=== PATIENT | male | born 1945 | race Caucasian/White ===

== ENCOUNTER → 2017-09-09 08:11 | Outpatient (CLI) | payer MEDICARE, OTHER, SELFPAY ==
[2017-09-09 09:22] LABS: AST(SGOT) 16 U/L (15-37); Alanine Aminotransfer ALT/SGPT 26 U/L (16-61); Albumin, Serum 3.6 g/dL (3.2-5.0); Alkaline Phosphatase 100 U/L (45-117); Bilirubin, Direct 0.15 mg/dL (0.00-0.30); Cholesterol 110 mg/dL (200); Globulin 3.6 g/dL (2.2-4.2); High Density Lipoprotein 35 mg/dL; Protein, Total 7.2 g/dL (6.4-8.2); Triglycerides 71 mg/dL; Very Low Density Lipoprotein 14 mg/dL (5-40)
== END ==
PROVIDERS: Family Provider Family Medicine; PCP Family Medicine; Visit Provider Internal Medicine Cardiovascular Disease
DX: E78.5 Hyperlipidemia, unspecified (principal)
CPT/HCPCS: 36415; 80061; 80076

== ENCOUNTER → 2018-03-16 08:14 | Outpatient (CLI) | payer MEDICARE, OTHER, SELFPAY ==
[2018-03-16 10:28] LABS: AST(SGOT) 12 U/L (15-37); Alanine Aminotransfer ALT/SGPT 24 U/L (16-61); Albumin, Serum 3.7 g/dL (3.2-5.0); Alkaline Phosphatase 93 U/L (45-117); Bilirubin, Direct 0.13 mg/dL (0.00-0.30); Cholesterol 115 mg/dL (200); Globulin 3.7 g/dL (2.2-4.2); High Density Lipoprotein 37 mg/dL; Protein, Total 7.4 g/dL (6.4-8.2); Triglycerides 67 mg/dL; Very Low Density Lipoprotein 13 mg/dL (5-40)
== END ==
PROVIDERS: Family Provider Family Medicine; PCP Family Medicine; Referring Provider Internal Medicine Cardiovascular Disease; Visit Provider Internal Medicine Cardiovascular Disease
DX: E78.5 Hyperlipidemia, unspecified (principal)
CPT/HCPCS: 36415; 80061; 80076

== ENCOUNTER → 2018-05-12 06:39 | Outpatient (CLI) | payer MEDICARE, OTHER, SELFPAY ==
[2017-11-17 09:27] VITALS: BMI 28.2
--- NOTE | 2018-05-12 10:23 | STRESSREP ---
Stress Test Report Date: 05/12/2018 Procedure: Exercise tolerance test/imaging study Indications: CAD; CABG Consent: Per the patient Procedure: The patient exercised on a Cruz protocol for 3 minutes completing Stage I achieving a peak heart rate of 151 bpm (102 % predicted maximal heart rate) with a peak blood pressure 192/84 mmHg and a peak MET capacity of 4 METs. The baseline ECG demonstrated normal sinus rhythm; subtle nonspecific ST/T wave abnormality. The peak exercise ECG demonstrated approximately 2 mm of horizontal/downsloping ST segment depression in leads II, III, aVF, and approximately [address] segment depression in leads V5 through V6 with gradual resolution towards baseline in recovery. There was a rare PAC/PVC during recovery. The functional capacity was considered decreased. There was no complaint of chest discomfort during exercise or recovery. The examination was discontinued secondary to dyspnea. Impression: 1. Technically adequate (percent predicted maximal heart rate greater than 85%) exercise tolerance test 2. Peak exercise ECG demonstrated approximately 2 mm of horizontal/downsloping ST segment depression in leads II, III, aVF, and approximately [address] segment depression in leads V5 through V6 with gradual resolution towards baseline in recovery 3. There was a rare PAC/PVC during recovery 4. Nuclear images pending Myocardial perfusion imaging study: Technique: The patient was injected with 14.1 mCi of technetium 99m Cardiolite and subsequently rest SPECT Cardiolite nuclear imaging was obtained in the horizontal long, vertical long, and short axis views. The patient exercised on a Cruz protocol for 3 minutes completing Stage I achieving a peak heart rate of 151 bpm (102 % predicted maximal heart rate) with a peak blood pressure 192/84 mmHg and a peak MET capacity of 4 METs. The patient was injected with 44.8 mCi of technetium 99m Cardiolite and subsequently stress SPECT Cardiolite nuclear imaging was obtained in the horizontal long, vertical long, and short axis views. A gated Cardiolite study at peak stress was obtained. Interpretation: Rest and stress SPECT Cardiolite nuclear imaging status post realignment, normalization, and attenuation correction, demonstrates the appearance of extracardiac and gastrointestinal tracer uptake near the inferior segments being more prominent at rest as opposed to stress. There is notation of diminished absence of tracer uptake in portions of the basal inferoseptal and basal towards mid inferior segments. These findings appear to be more prominent, especially in the basal towards mid inferior segments following stress as opposed to rest. There is notation of diminished end-systolic thickening and brightening in the aforementioned areas. The gated Cardiolite study demonstrates diminished myocardial thickening and end were wall motion in the aforementioned areas. The reported LVEF is 48 %. Impression: 1. Rest and stress SPECT Cardiolite nuclear imaging demonstrate myocardial perfusion changes compatible with an area of previous myocardial injury/infarction involving portions of the basal inferoseptal and basal towards mid inferior segments with post stress myocardial perfusion changes appearing compatible with an area of samina-infarct related myocardial ischemia in portions of the basal to mid inferior segments. 2. The gated Cardiolite study reports an LVEF of 48 %. This note was generated with [employer] software. It may contain incorrect words, spelling, and punctuation that were not noted in checking the note before signing.
== END ==
PROVIDERS: Family Provider Family Medicine; PCP Family Medicine; Referring Provider Nurse Practitioner Family; Visit Provider Nurse Practitioner Family
DX: I25.10 Atherosclerotic heart disease of native coronary artery without angina pectoris (principal); R94.39 Abnormal result of other cardiovascular function study; I10 Essential (primary) hypertension; Z95.1 Presence of aortocoronary bypass graft
CPT/HCPCS: 78452; 93017; 93306; A9500; Q9957; A4216; C8929

== ENCOUNTER → 2018-05-14 10:20 | Outpatient (CLI) | payer MEDICARE, OTHER, SELFPAY ==
[2018-05-14 09:29] VITALS: BMI 28.8
[2018-05-14 13:28] LABS: Anion Gap 9 (5-15); BUN 24 mg/dL (7-18); BUN/Creat Ratio 20.9 RATIO (10-20); Calcium,Total 9.2 mg/dL (8.5-10.1); Chloride 109 mmol/L (98-107); Creatinine, Serum 1.15 mg/dL (0.70-1.30); EST Glomerular Filtration Rate 66 mL/min (>60); Est Glom Filt Rate - Afr Amer 80 mL/min (>60); Glucose 91 mg/dL (74-106); Potassium 4.8 mmol/L (3.5-5.1); Sodium Level 142 mmol/L (136-145)
[2018-05-14 13:29] LABS: Absolute Lymphocyte Count 2.53 X10^3/ul (0.83-4.51); Basophil# 0.03 X10^3/uL; Basophil% 0.3 % (0-1); Eosinophil# 0.26 X10^3/uL; Eosinophils% 2.5 % (0-5); Hematocrit 48.7 % (40-54); Hemoglobin 15.8 g/dl (13.0-16.5); Lymphocyte # 2.53 X10^3/ul (4.0); Lymphocyte % 24.7 % (19-41); Mean Corp Hgb Conc 32.4 g/gl (32-36); Mean Corpuscular Hgb 29.4 pg (27.0-32.0); Mean Corpuscular Volume 90.5 fL (80-94); Mean Platelet Vol. 10.2 fl (6.2-12.0); Monocyte# 1.43 X10^3/uL; Monocyte% 13.9 % (0-10); Neutrophil # 5.98 X10^3/uL (2.7-7.7); Neutrophil % 58.3 % (47-70); POSITIVE COUNT NO; POSITIVE DIFFERENTIAL NO; POSITIVE MORPHOLOGY NO; Platelet Count 442 K/mm3 (150-450); RBC Distribution Width CV 13.8 % (11.6-14.6); RBC Distribution Width SD 45.6 fl (35.1-43.9); Red Blood Count 5.38 M/mm3 (4.6-6.2); White Blood Count 10.3 K/mm3 (4.4-11.0)
== END ==
PROVIDERS: Family Provider Family Medicine; PCP Family Medicine; Visit Provider Nurse Practitioner Family
DX: I10 Essential (primary) hypertension (principal); R06.09 Other forms of dyspnea; R53.83 Other fatigue; R94.39 Abnormal result of other cardiovascular function study; E78.2 Mixed hyperlipidemia; Z95.1 Presence of aortocoronary bypass graft
CPT/HCPCS: 36415; 80048; 85025

== ENCOUNTER 2018-05-27 07:03 | Day surgery (SDC) | payer MEDICARE, OTHER, SELFPAY ==
[2018-05-14 09:29] VITALS: BMI 28.8
--- NOTE | 2018-05-14 10:43 | RAD_ITS ---
STUDY: X-RAY CHEST REASON FOR EXAM: Male, 72 years old. Abnormal stress test, preheart catheter TECHNIQUE: PA and lateral views of the chest. COMPARISON: 2012 FINDINGS: Lungs are hyperexpanded with chronic interstitial changes. No organized infiltrate or effusion. There is no demonstrated pleural abnormality. Sternal cerclage wires and vascular clips are present from a prior sternotomy and coronary artery bypass graft procedure (CABG). Normal mediastinum and davy. Normal visualized pulmonary arteries. There is atherosclerotic calcification of the aortic arch with tortuosity. There are diffuse degenerative changes of the visualized thoracic spine. Normal visualized ribs, clavicles, and shoulders. There is no demonstrated abnormality of the visualized soft tissue structures of the upper abdomen. RAD/Chest PA and Lateral IMPRESSION: Hyperexpanded lungs with chronic interstitial changes, no superimposed acute pulmonary process Electronically Signed: Kaleb Eden MD at 11:00 EST , Service support ,
[2018-05-25 10:14] VITALS: BMI 28.8
[2018-05-27 07:16] LABS: Prothrombin Time Fingerstick 14.1 SEC (11.9-14.4)
--- NOTE | 2018-05-27 19:04 | CL.D_ITS ---
Patient Name: XUAN ARRIETA Study Date: 05/27/2018 Performing: Bob Kothari MD Ht: 72 inches 183 cm : 1945 Wt: 214.1 lbs 97 kg Age: 72 Gender: male BSA: 2.19 PROCEDURE(S) PERFORMED NC42-MGX/COR/LV/CABG CLINICAL PROFILE AND INDICATIONS Indications: Suspected CAD Heart Failure: None Stress/Imaging Stress Test w/SPECT MPI: Yes Result: PositiveStress Test with SPECT MPI: Positive Angina Classification Anginal Classification w/in 2 Weeks: CCS III CAD Presentations: Stable angina. CONCLUSIONS Elevated Left Ventricular End Diastolic Pressure Segmented LV systolic dysfunction- Mild LVEF: by LV gram 50 % [place] Multivessel CAD MANZANARES to LAD: patent SVG to OM: patient Left to Right collateral flow RECOMMENDATIONS Risk factor modification Medical therapy DESCRIPTION OF PROCEDURE The patient arrived to the procedure lab. The risks and benefits of the procedure as well as a full d escription of our services here and current unavailability of surgical backup were fully explained to the patient and/or their significant other prior to the catheterization. The Timeout was completed, verifying the correct patient and procedure. The patient's procedural site was prepped and draped in the usual fashion. Local anesthetic was given subcutaneously to right groin region with Lidocaine 2%. Using a modified Seldinger technique, arterial access was obtained via the right femoral artery, a 4 Fr sheath was inserted Left Coronary Artery selective angiography was performed in multiple views us ing a 4 Fr. JL5 catheter. Right Coronary Artery selective angiography was then performed in multiple views using a 4 Fr. 3DRC catheter. Saphenous Vein graft to the OM 1 selective angiography was perform ed in multiple views using a 4 Fr. 3DRC catheter. Left internal mammary artery graft to the LAD selective angiography was performed in multiple views using a 4 Fr. JR4 catheter. Right Coron mamta Artery selective angiography was then performed in multiple views using a 4 Fr. JR4 catheter. Lef t Ventriculography was performed in TABOR projection using a 4 Fr. Pigtail catheter. LV to AO pullback pressures were then recorded.The arterial sheath was pulled and manual compression applied until hemo stasis is achieved. CORONARY ANGIOGRAPHY LEFT HEART ASSESSMENT Left Ventricular Ejection Fraction: by LV Gram 50 % Inferior Basal Akinesis. Inferior Mid Hypokinesis Elevated Left Ventricular End Diastolic Pressure LVEDP: 22 mmHg LEFT MAIN: Moderate calcification, 50 % Stenosis LEFT ANTERIOR DECENDING ARTERY: MID LAD: is occluded CIRCUMFLEX ARTERY: PROX CIRC: 95 % Stenosis RAMUS: Mild luminal irregularities RIGHT CORONARY ARTERY: MID RCA: is occluded GRAFTS: MANZANARES graft to the Mid LAD is patent with no angiographically significant appearing disease distal to the anastomosis Saphenous Vein graft to the 1st OM is patent with no angiographically significant appearing disease d istal to the anastomosis COLLATERAL FLOW: Collateral flow from Left to Right VALVE FINDINGS: Normal Aortic Valve function Normal Mitral Valve function AORTIC ROOT: Angiographically normal COMPLICATIONS No Complications PROCEDURE MEDICATIONS Versed 1 mg IV Versed 1 mg IV Oxygen: 2 L/min via nasal cannula SUMMARY OF HEMODYNAMIC DATA Time AIR REST ECG 07:27:23 AO 113/68 (89) SA 08:47:16 LV 137/0, 22 09:05:58 LV 134/-2, 12 09:06:05 LV 134/2, 21 09:07:05 LV 140/3, 19 09:07:12 LVp 134/1, 17 09:07:18 AOp 138/68 (96) 09:07:24 Signed By Bob Kothari MD On 05/27/2018 19:03:14 Bob Kothari MD
--- OUTSIDE RECORDS SUMMARY | 2018-07-29 01:46 | XMS RPT_ITS ---
:1945 Author Organization [place] Support Name Relationship Address Phone ISABELL ARRIETA Unavailable [address] + [place] [address] BRIAN ARRIETA Unavailable [address] + [place] [address] R Unavailable Unavailable Unavailable ISABELL ARRIETA Unavailable [address] + [place] [address] BRIAN ARRIETA Un[address] + [place] [address] R Unavailable Unavailable Unavailable ISABELL ARRIETA Unavailable [address] + [place] [address] BRIAN ARRIETA Unavailable [address] + [place] [address] R Unavailable Unavailable Unavailable ISABELL ARRIETA Unavailable [address] + [place] [address] BRIAN ARRIETA Unavailable [address] + [place] [address] R Unavailable Unavailable Unavailable ISABELL ARRIETA Unavailable [address] + [place] [address] BRIAN ARRIETA Unavailable [address] + [place] [address] R Unavailable Unavailable Unavailable ISABELL ARRIETA Unavailable [address] + [place] [address] BRIAN ARRIETA Un[address] + [place] [address] [employer] Unavailable [address] + [place] [address] ISABELL ARRIETA Unavailable [address] + [place] [address] [employer] Unavailable [address] + [place] [address] ISABELL ARRIETA Unavailable [address] + [place] [address] [employer] Unavailable [address] + [place] [address] Care Team Providers Name Role Phone TOSIN COSME Referring Unavailable BA, TOSIN Referring Unavailable BA, TOSIN Referring Unavailable Roof, Artem Campbell Attending Unavailable Roof, Artem Campbell Referring Unavailable Stanley, Owen Primary Care Unavailable Roof, Artem Campbell Attending Unavailable Stanley, Owen Referring Unavailable Moodispaw, Bob Attending Unavailable Moodispaw, Bob Referring Unavailable Stanley, Owen Primary Care Unavailable Roof, Artem Campbell Attending Unavailable Stanley, Owen Primary Care Unavailable Moodispaw, Bob Attending Unavailable Mood[place], Bob Referring Unavailable Stanley, Owen Primary Care Unavailable Mood[place], Bob Attending Unavailable Roof, Artem Campbell Referring Unavailable Roof, Artem Campbell Attending Unavailable Stanley, Owen Referring Unavailable Stanley, Owen Primary Care Unavailable Moodispaw, Bob Attending Unavailable Moodispaw, Bob Referring Unavailable Stanley, Owen Primary Care Unavailable PROBLEMS PROBLEMS DATE TYPE CONDITION / CODE ATTENDING STATUS SOURCE Unknown I10 - Essential (primary) Artem Garza Active [place] [facility] hypertension / Community I10(ICD-10) Hospital Repository Unknown Z95.1 - Presence of Artem Garza Active [place] 9 aortocoronary bypass Community graft / Z95.1(ICD-10) Hospital Repository Unknown R94.39 - Abnormal result Artem Garza Active [place] [facility] of other cardiovascular Community function study / Hospital R94.39(ICD-10) Repository Unknown R53.83 - Other fatigue / Artem Garza Active [place] 9 R53.83(ICD-10) [facility] Repository Unknown R06.09 - Other forms of Artem Garza Active [place] 9 dyspnea / R06.09(ICD-10) [facility] Repository Unknown E78.2 - Mixed Artem Garza Active [place] 9 hyperlipidemia / Community E78.2(ICD-10) Hospital Repository Unknown E78.0 - Pure RoofArtem Active [place] 9 hypercholesterolemia / Community E78.0(ICD-10) Hospital Repository Unknown E78.00 - Pure Roof, Artem Campbell Active [place] 9 hypercholesterolemia, Community unspecified / Hospital E78.00(ICD-10) Repository Unknown I25.10 - Atherosclerotic Roof, Artem Campbell Active [place] 9 heart disease of [place] Community coronary artery without Hospital angina pectoris / Repository I25.10(ICD-10) Active Vitamin D deficiency, NA Active [place] 8 unspecified / Clinic Main 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 Main without hydronephrosis / [place] N13.5(ICD-10) Repository Unknown E78.5 - Hyperlipidemia, Mood[place], Active [place] [facility] unspecified / Bob Community E78.5(ICD-10) Hospital Repository PROCEDURES PROCEDURES No Procedure Records FoundRESULTS RESULTS PROTIME W/INR Collected: 05/27/2018 Status: F Source: [place] FINGERSTICK 7:10 AM [facility] REPOSITORY TYPE CODE TESTS RESULT OUT OF RANGE REFERENCE UNITS LAB L9200.1001 11.9-14.4 SEC Normal PROTIME ISTAT 14.1 Result Comment: Reference Range 11.9 - 14.4 LAB L9200.2000 Normal INR ISTAT 1.20 Result Comment: Critical Value > 3.5 Performed By: #### L9200.0000 #### [facility] Point of Care [address] [place] [address] CARDIOLOGY VISIT Observed: 05/14/2018 Status: F Source: [place] REPORT 11:25 AM [facility] REPOSITORY [facility] [address] [place] [address] OFFICE VISIT Date of Service: 05/14/18 MR#: [id number] Acct: [id number] Name: MEENAKSHIXUAN José Rep #: [id number] : 1945 Provider: HEMALATHA Garza Age/Sex: 72/M Location: [facility] Status: Signed HPI HPI Details: XUAN ARRIETA, is a 72 M who presents to the office today for a cardiovascular outpatient follow-up. He has a history of CABG in 2002 with MANZANARES to LAD and SVG to OM in November [address] [facility], hypertension, hyperlipidemia, and type II diabetes. Prior to office visit patient underwent a nuclear stress test due to greater than 5 years since previous stress test. This was considered to be abnormal. Patient's contacted our office stating that the patient appears to be more short of breath on exertion and more fatigued most noted by sleeping while watching TV. Pt denies chest, arm, jaw, or neck discomfort. Prior to bypass he had chest pain. Acknowledges progressive dyspnea on exertion, that he attributes to his age. His exercise tolerance is stable. Pt denies symptoms of palpitations, lightheadedness, dizziness, near syncopal or syncopal episodes. Pt denies edema or claudication issues. Pt. denies orthopnea, PND, fever, chills, blood in urine, blood in stool, myalgia, or unexplainable fatigue. 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 Accompanied by: Is patient in pain?: No Allergies No Known Allergies Allergy (Verified 05/14/18 09:35) Medications aspirin 325 mg tablet 325 mg PO QDAY 05/13/17 [History Confirmed 05/14/18] calcium carbonate-vitamin D3 600 mg calcium-200 unit capsule 1 cap PO QDAY ea 05/13/17 [History Confirmed 05/14/18] multivitamin tablet 1 tab PO QDAY 05/13/17 [History Confirmed 05/14/18] omega 5-xzh-bdo-fish oil 1,000 mg (120 mg-180 mg) capsule 1 cap PO QDAY ea 05/13/17 [History Confirmed 05/14/18] fexofenadine 60 mg tablet 60 mg PO QDAY tab 05/15/17 [History Confirmed 05/14/18] pantoprazole 40 mg tablet,delayed release 40 mg PO QDAY 05/15/17 [History Confirmed 05/14/18] amlodipine 5 mg tablet 5 mg PO BID #180 tab 11/17/17 [Rx Confirmed 05/14/18] atorvastatin 80 mg tablet 40 mg PO QDAY #45 tab MDD 1 tablet po qday 11/17/17 [Rx Confirmed 05/14/18] losartan 50 mg tablet 50 mg PO QDAY #90 tab 11/17/17 [Rx Confirmed 05/14/18] metoprolol tartrate 25 mg tablet 25 mg PO BID #90 tab MDD 1/2 tablet po BID 11/17/17 [Rx Confirmed 05/14/18] clopidogrel 75 mg tablet 75 mg PO QDAY #30 tab 05/14/18 [Rx Confirmed 05/14/18] naproxen 250 mg tablet 250 mg PO BID PRN tab 05/14/18 [History Confirmed 05/14/18] Ejection fraction %: 55 to 59 PFSH Medical History Mixed hyperlipidemia (Chronic) Hypertension (Chronic) 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 (Acute) Carotid bruit (Acute) Chest pain (Acute) Fatigue (Acute) Hyperlipidemia (Acute) Old myocardial infarction (Acute) Tobacco abuse (Acute) Type 2 diabetes mellitus (Acute) Hypertension (Chronic) Surgical History Hx of CABG (Chronic) History of kidney surgery (Resolved) History of tonsillectomy (Resolved) History of vasectomy (Resolved) Presence of aortocoronary bypass graft (Resolved) Family History Father Myocardial infarction Brother Hx of CABG Social History Smoking Status: Former smoker how long ago did patient quit smokin years alcohol intake: current alcohol intake frequency: a few times a week substance use type: does not use caffeine: Yes Type: coffee Number of servings: 2 ROS Const Const: Negative for weakness, body ache, fever(s), chills or fatigue ENT ENT: Negative for dizziness Cardio Chest Pain: No Palpitations: No Edema: None Muscle aches with walking: None Resp Respiratory: Positive for SOB with activity; negative for SOB at rest, SOB orthopnea\SOB lying down or paroxysmal nocturnal dyspnea GI GI: Negative nausea, black,tarry stools, bright, red blood in stools or vomiting blood/hematemesis : Negative for hematuria or frequent nighttime urination/ nocturia Musc Musc: Negative for muscle aches/ myalgia Skin Skin: Negative non-healing lesions or rash Neuro Neuro: Negative for lightheadedness, near syncope, syncope, orthostatic symptoms, weakness or dizziness Endo Endo: Negative for fatigue Allergy Allergy/Immunology: Negative for rash Cardiology Exam Const Appearance: cooperative, healthy appearing, comfortable, no acute distress, well developed and well groomed Nutritional Appearance: average body habitus and overweight Orientation: alert, awake and oriented x3 Head Head: normal to inspection, normocephalic and atraumatic Ears: hearing grossly normal bilaterally Nose: external nose normal Face and Sinus: face symmetric Mouth: oral mucosae normal Teeth and gingiva: dentition normal Eyes General: appearance normal, both eyes and all related structures Eyelids: eyelids normal Conjunctivae: conjunctivae normal Pupils: PERRL EOM: EOM intact bilaterally Neck Neck: normal visual inspection and full ROM Carotids: normal carotid upstroke Chest Chest inspection: normal inspection of the chest, symmetric chest movement and normal respiratory effort Auscultation: Bilateral: Clear to Auscultation Cardio Palpation: normal PMI Rate: regular rate Rhythm: regular rhythm Heart sounds: S1 normal, S2 normal and positive S4; negative gallop, murmur or rub GI GI: normal to inspection, soft, no hepatosplenomegaly and bowel sounds present Neuro General: alert, awake and oriented x3 Skin Skin: no rashes or lesions noted Extremities Pulses: Normal: Right Radial Pulse, Left Radial Pulse Lower Extremity Edema: None: Bilateral Psych Psychological: normal affect Assessment AND Plan 1. Hx of CABG Z95.1 S/P CABD with MANZANARES to LAD and SVG to OM in November 2002 at [facility]; Plan His most recent nuclear stress test in May 2018 was considered to be positive. Patient is agreeable to proceed with heart catheterization for further evaluation. He will begin Plavix. [facility] Yola Shah at [phone] and to local pharmacy to ensure patient can start this medication 7 days prior to heart catheterization. His heart catheterization results will dictate if he needs to remain on Plavix therapy. He will continue with current beta-emily, aspirin therapy, statin, and ARB. Further recommendation will be made based on results of his heart catheterization. Orders Orders: 2. Essential hypertension I10 Plan Patient's blood pressure is well-controlled. We will continue to monitor this. We will not make any medication regimen changes. Orders Orders: 3. Mixed hyperlipidemia E78.2 Plan Lipid panel from March 2018 showed cholesterol: 115, HDL: 37, LDL: 65, triglycerides: 67. He will continue with current statin medication. We will continue to monitor. Orders Orders: Plan Detail Other Orders Orders: Other Medications New: Additional Comments Thank you for allowing us to participate in the patient's plan of care, if you have any questions please do not hesitate to call. This note was generated using a voice recognition system and there may be incorrect words, spelling, or punctuation that were not noted upon reviewing the office note prior to saving. Coding Level of Care Code Off vis,est,level 3 Diagnoses Hx of CABG Z95.1 Essential hypertension I10 Hypertension type: essential hypertension Mixed hyperlipidemia E78.2 Coding Level of Care Code Off vis,est,level 3 Diagnoses Hx of CABG Z95.1 Essential hypertension I10 Hypertension type: essential hypertension Mixed hyperlipidemia E78.2 Supplemental Info Supplemental Information He had a transthoracic echocardiogram performed on 06/16/2012. He had left ventricular regional wall motion abnormalities. His overall LVEF was 55%. He had mild concentric LVH with mild left atrial enlargement, mild MR, trivial TR, mild focal aortic valve thickening, mild KS, and an estimated RV systolic pressure of 35 mmHg. He had decreased diastolic compliance. Nuclear stress test from May 2018 showed peak exercise ECG with approximately 2 mm of horizontal/downsloping ST segment depression in leads II, 3, aVF, and a proximal [address] segment depression in leads V4 through V6 with gradual resolution towards baseline in recovery and nuclear images showing changes compatible with an area of previous myocardial injury/infarction involving portions of the basal inferoseptal and basal towards mid inferior segments with post stress myocardial perfusion changes appear compatible with an area of samina-infarct related myocardial ischemia in portion of the basal to mid inferior segments with an ejection fraction of 48%. He subsequently underwent diagnostic cardiac catheterization on 07/06/2012. At that time based upon the report, from [facility] in [place], [place], he had normal left ventricular systolic function with an estimated LVEF of 60%, a patent MANZANARES to the mid LAD, patent SVG to the OM, and severe underlying [place] vessel disease including the left main coronary artery and a report of an occluded and collateralized right coronary artery. His previous coronary artery bypass grafting surgery was performed through the [facility] system on 11/22/2002 at [facility] in [facility]. At that time he had a MANZANARES to the LAD and an SVG to the OM. Labs LDL Cholesterol 65 mg/dL (0-130) 03/16/18 HDL Cholesterol 37 mg/dL (40-) L 03/16/18 Triglycerides 67 mg/dL (-199) 03/16/18 VLDL Cholesterol 13 mg/dL (5-40) 03/16/18 Diagnostics Stress Test Nuclear Medicine 05/12/18 Stress Test 05/12/18 Chest X-Ray 05/14/18 05/14/18 1125 <Electronically signed by Artem TYLER> Date Artem TYLER Cosigner Signature: Date (if applicable) CC: Owen Angel DO CHEST PA AND LATERAL Observed: 05/14/2018 Status: F Source: [place] 10:40 AM [facility] REPOSITORY [facility] Imaging Services [address] [place] [id number] Chest PA and Lateral MR#: [id number] Acct: [id number] Name: XUAN ARRIETA Rep #: [id number] : 1945 M 72 From: Quintin [place] MD PCP: Owen Angel DO Status: PRE [facility] Study: Chest PA and Lateral Date of Exam: 05/14/18 Exam# [id number] Ordering Dr: Artem Garza STUDY: X-RAY CHEST REASON FOR EXAM: Male, 72 years old. Abnormal stress test, preheart catheter TECHNIQUE: PA and lateral views of the chest. COMPARISON: 2012 FINDINGS: Lungs are hyperexpanded with chronic interstitial changes. No organized infiltrate or effusion. There is no demonstrated pleural abnormality. Sternal cerclage wires and vascular clips are present from a prior sternotomy and coronary artery bypass graft procedure (CABG). Normal mediastinum and davy. Normal visualized pulmonary arteries. There is atherosclerotic calcification of the aortic arch with tortuosity. There are diffuse degenerative changes of the visualized thoracic spine. Normal visualized ribs, clavicles, and shoulders. There is no demonstrated abnormality of the visualized soft tissue structures of the upper abdomen. RAD/Chest PA and Lateral IMPRESSION: Hyperexpanded lungs with chronic interstitial changes, no superimposed acute pulmonary process Electronically Signed: Kaleb [place] MD at 11:00 EST , Service support , CC: HEMALATHA aGrza; Owen Angel DO Woods Rider: Signed BASIC METABOLIC Collected: 05/14/2018 Status: F Source: AIDAN PROFILE (BMP) 10:21 AM [facility] REPOSITORY TYPE CODE TESTS RESULT OUT OF RANGE REFERENCE UNITS LAB L501.0100 74-106 mg/dL Normal GLU 91 Result Comment: Please note revised GLUCOSE reference range effective 2017. LAB L501.1000 7-18 mg/dL High BUN 24 LAB L501.1100 0.70-1.30 mg/dL Normal CREAT,SERUM 1.15 Result Comment: The validity of the calculated GFR AND GFRAA in patients over 70 years has not been determined. Clinical correlation is essential. LAB L501.1110 >60 mL/min Normal EST GFR 66 Result Comment: Non- GFR Calc LAB L501.1115 >60 mL/min Normal EST GFR - AA 80 Result Comment: GFR Calc LAB L501.1300 10-20 RATIO High BUN/CRE 20.9 LAB L501.2200 8.5-10.1 mg/dL CA Normal 9.2 LAB L501.5300 136-145 mmol/L NA Normal 142 LAB L501.5600 3.5-5.1 mmol/L K Normal 4.8 Result Comment: Slight Hemolysis, Result may be falsely increased. LAB L501.5900 98-107 mmol/L High CL 109 LAB L501.6100 21.0-32.0 mmol/L Normal CO2 24.0 LAB L501.6200 5-15 Normal 9 GAP Performed By: #### L500.2500 #### [facility] [address] [place], [address] CBC W/DIFF, AUTOMATED Collected: 05/14/2018 Status: F Source: [place]AN 10:21 AM [facility] REPOSITORY TYPE CODE TESTS RESULT OUT OF RANGE REFERENCE UNITS LAB L100.1000 4.4-11.0 K/mm3 Normal WBC 10.3 LAB L100.1200 4.6-6.2 M/mm3 Normal RBC 5.38 LAB L100.1300 13.0-16.5 g/dl Normal HGB 15.8 LAB L100.1400 40-54 % Normal HCT 48.7 LAB L100.1500 80-94 fL Normal MCV 90.5 LAB L100.1600 27.0-32.0 pg Normal MCH 29.4 LAB L100.1700 32-36 g/gl Normal MCHC 32.4 LAB L100.1810 11.6-14.6 % Normal RDW CV 13.8 LAB L100.1820 35.1-43.9 fl High RDW SD 45.6 LAB L100.1900 150-450 K/mm3 Normal PLT 442 LAB L100.2000 6.2-12.0 fl Normal MPV 10.2 LAB L100.2100 47-70 % Normal NEUT% 58.3 LAB L100.2200 19-41 % Normal LY% 24.7 LAB L100.2300 0-10 % High MONO% 13.9 LAB L100.2400 0-5 % Normal EO% 2.5 LAB L100.2500 0-1 % Normal BASO% 0.3 LAB L100.2550 0.0-0.9 % Normal IM GRAN % 0.300 Result Comment: IG% - Immature Granulocytes (promyelocytes, myelocytes and metamyelocytes) > 1% indicates that a LEFT SHIFT is Present. LAB L100.2620 2.0-7.7 X10 3/uL Normal Absolute Neut 6.0 LAB L100.2720 0.83-4.51 X10 3/ul Normal Absolute Lymph 2.53 Performed By: #### L100.0100 #### [facility] [address] [place], [address] STRESS REPORT Observed: 05/12/2018 Status: F Source: [place] 10:28 AM [facility] REPOSITORY [facility] Cardiovascular Services [address] [place] [address] MR#: [id number] Acct: [id number] Name: XUAN ARRIETA Rep #: [id number] : 1945 72 From: Bob Kothari MD Primary Care: Owen Angel DO Status: REG CLI Ordering Dr: Sissy: Akira Contreras Stress Test Report Date: 05/12/2018 Procedure: Exercise tolerance test/imaging study Indications: CAD; CABG Consent: Per the patient Procedure: The patient exercised on a Cruz protocol for 3 minutes completing Stage I achieving a peak heart rate of 151 bpm (102 % predicted maximal heart rate) with a peak blood pressure 192/84 mmHg and a peak MET capacity of 4 METs. The baseline ECG demonstrated normal sinus rhythm; subtle nonspecific ST/T wave abnormality. The peak exercise ECG demonstrated approximately 2 mm of horizontal/downsloping ST segment depression in leads II, III, aVF, and approximately [address] segment depression in leads V5 through V6 with gradual resolution towards baseline in recovery. There was a rare PAC/PVC during recovery. The functional capacity was considered decreased. There was no complaint of chest discomfort during exercise or recovery. The examination was discontinued secondary to dyspnea. Impression: 1. Technically adequate (percent predicted maximal heart rate greater than 85%) exercise tolerance test 2. Peak exercise ECG demonstrated approximately 2 mm of horizontal/downsloping ST segment depression in leads II, III, aVF, and approximately [address] segment depression in leads V5 through V6 with gradual resolution towards baseline in recovery 3. There was a rare PAC/PVC during recovery 4. Nuclear images pending Myocardial perfusion imaging study: Technique: The patient was injected with 14.1 mCi of technetium 99m Cardiolite and subsequently rest SPECT Cardiolite nuclear imaging was obtained in the horizontal long, vertical long, and short axis views. The patient exercised on a Cruz protocol for 3 minutes completing Stage I achieving a peak heart rate of 151 bpm (102 % predicted maximal heart rate) with a peak blood pressure 192/84 mmHg and a peak MET capacity of 4 METs. The patient was injected with 44.8 mCi of technetium 99m Cardiolite and subsequently stress SPECT Cardiolite nuclear imaging was obtained in the horizontal long, vertical long, and short axis views. A gated Cardiolite study at peak stress was obtained. Interpretation: Rest and stress SPECT Cardiolite nuclear imaging status post realignment, normalization, and attenuation correction, demonstrates the appearance of extracardiac and gastrointestinal tracer uptake near the inferior segments being more prominent at rest as opposed to stress. There is notation of diminished absence of tracer uptake in portions of the basal inferoseptal and basal towards mid inferior segments. These findings appear to be more prominent, especially in the basal towards mid inferior segments following stress as opposed to rest. There is notation of diminished end-systolic thickening and brightening in the aforementioned areas. The gated Cardiolite study demonstrates diminished myocardial thickening and end were wall motion in the aforementioned areas. The reported LVEF is 48 %. Impression: 1. Rest and stress SPECT Cardiolite nuclear imaging demonstrate myocardial perfusion changes compatible with an area of previous myocardial injury/infarction involving portions of the basal inferoseptal and basal towards mid inferior segments with post stress myocardial perfusion changes appearing compatible with an area of samina- infarct related myocardial ischemia in portions of the basal to mid inferior segments. 2. The gated Cardiolite study reports an LVEF of 48 %. This note was generated with 5minutesation software. It may contain incorrect words, spelling, and punctuation that were not noted in checking the note before signing. 05/12/18 1028 <Electronically signed by Bob Kothari MD> Date Bob Kothari MD CC: HEMALATHA Garza; Owen Angel DO Date Dictated: 05/12/18 1023 Date Transcribed: 05/12/18 1023 Woods Rider: PM Signed LIVER PROFILE Collected: 03/16/2018 Status: F Source: AID[place] 8:23 AM [facility] REPOSITORY TYPE CODE TESTS RESULT OUT OF RANGE REFERENCE UNITS LAB L501.1500 6.4-8.2 g/dL Normal T PROT 7.4 LAB L501.1800 3.2-5.0 g/dL Normal ALB 3.7 LAB L501.1950 2.2-4.2 g/dL Normal GLOB 3.7 LAB L501.4100 15-37 U/L Low AST 12 LAB L501.4305 45-117 U/L Normal ALK P 93 LAB L501.4405 16-61 U/L Normal ALT 24 LAB L501.4600 0.20-1.00 mg/dL Normal T BILI 0.60 LAB L501.4700 0.00-0.30 mg/dL Normal D BILI 0.13 Performed By: #### L500.3400, L500.4100 #### [facility] [address] [place], [place], [address] LIPID PROFILE Collected: 03/16/2018 Status: F Source: AIDAN 8:23 AM [facility] REPOSITORY TYPE CODE TESTS RESULT OUT OF RANGE REFERENCE UNITS LAB L501.4900 200 mg/dL Normal CHOL 115 Result Comment: <200 mg/dL Desirable 200-240 mg/dL Borderline >240 mg/dL High Risk LAB L501.5000 mg/dL Normal TRIG 67 Result Comment: The drugs N-Acetylcysteine and Metamizole may falsely depress this assay. Serum Triglycerides Reference Interval Normal <150 mg/dL Borderline high 150 - 199 mg/dL High 200 - 499 mg/dL Very High > or = 500 mg/dL LAB L501.6400 mg/dL Low HDL 37 Result Comment: The drugs N-Acetylcysteine and Metamizole may falsely depress this assay. Reference Range HDL <40 mg/dL Low HDL Cholesterol HDL >or= 60 mg/dL High HDL Cholesterol LAB L501.6500 0-130 mg/dL Normal LDL 65 LAB L501.6600 5-40 mg/dL Normal VLDL 13 Performed By: #### L500.3400, L500.4100 #### [facility] [address] [place], [place], [address] CARDIOLOGY VISIT Observed: 11/18/2017 Status: F Source: [place] REPORT 7:25 AM [facility] REPOSITORY [facility] [address] [place] [address] OFFICE VISIT Date of Service: 11/17/17 MR#: [id number] Acct: [id number] Name: XUAN ARRIETA Rep #: [id number] : 1945 Provider: HEMALATHA Garza Age/Sex: 72/M Location: [facility] Status: Signed HPI HPI Details: XUAN ARRIETA, is a 72 M who presents today for a cardiovascular outpatient follow up. He has a history of CABG in 2002, hypertension, hyperlipidemia, and type II diabetes. Pt denies chest, arm, jaw, or neck discomfort. Prior to bypass he had chest pain. His exercise tolerance is stable. Pt denies symptoms of CHF, palpitations, lightheadedness, dizziness, near syncopal or syncopal episodes. Pt denies edema or claudication issues. Pt. denies orthopnea, PND, fever, chills, blood in urine, blood in stool, myalgia, or unexplainable fatigue. 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[employer] Products Required: No Accompanied by: none Is patient in pain?: No Allergies No Known Allergies Allergy (Verified 11/17/17 09:28) Medications aspirin 325 mg tablet 325 mg PO QDAY 05/13/17 [History Confirmed 11/17/17] calcium carbonate-vitamin D3 600 mg calcium-200 unit capsule 1 cap PO QDAY ea 05/13/17 [History Confirmed 11/17/17] multivitamin tablet 1 tab PO QDAY 05/13/17 [History Confirmed 11/17/17] naproxen 250 mg tablet 250 mg PO Q6-12H PRN 05/13/17 [History Confirmed 11/17/17] omega 6-cse-bea-fish oil 1,000 mg (120 mg-180 mg) capsule 1 cap PO QDAY ea 05/13/17 [History Confirmed 11/17/17] fexofenadine 60 mg tablet 60 mg PO QDAY tab 05/15/17 [History Confirmed 11/17/17] pantoprazole 40 mg tablet,delayed release 40 mg PO QDAY 05/15/17 [History Confirmed 11/17/17] amlodipine 5 mg tablet 5 mg PO BID #180 tab 11/17/17 [Rx Confirmed 11/17/17] atorvastatin 80 mg tablet 40 mg PO QDAY #45 tab MDD 1 tablet po qday 11/17/17 [Rx Confirmed 11/17/17] losartan 50 mg tablet 50 mg PO QDAY #90 tab 11/17/17 [Rx Confirmed 11/17/17] metoprolol tartrate 25 mg tablet 25 mg PO BID #90 tab MDD 1/2 tablet po BID 11/17/17 [Rx Confirmed 11/17/17] Ejection fraction %: 55 to 59 PFSH Medical History 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 (Acute) Carotid bruit (Acute) Chest pain (Acute) Fatigue (Acute) Hyperlipidemia (Acute) Old myocardial infarction (Acute) Tobacco abuse (Acute) Type 2 diabetes mellitus (Acute) Hypertension (Chronic) Surgical History History of kidney surgery (Resolved) History of tonsillectomy (Resolved) History of vasectomy (Resolved) Presence of aortocoronary bypass graft (Resolved) Family History Father Myocardial infarction Brother Hx of CABG Social History Smoking Status: Former smoker alcohol intake: current substance use type: does not use ROS Const Const: Negative for fatigue, weakness, body ache, fever(s) or chills ENT ENT: Negative for dizziness Cardio Chest Pain: No Palpitations: No Edema: None Muscle aches with walking: None Resp Respiratory: Negative for SOB with activity, SOB at rest, SOB orthopnea\SOB lying down or paroxysmal nocturnal dyspnea GI GI: Negative nausea, black,tarry stools, bright, red blood in stools or vomiting blood/hematemesis : Negative for hematuria or frequent nighttime urination/ nocturia Musc Musc: Negative for muscle aches/ myalgia Skin Skin: Negative non-healing lesions or rash Neuro Neuro: Negative for weakness, dizziness, lightheadedness, near syncope, syncope or orthostatic symptoms Endo Endo: Negative for fatigue Allergy Allergy/Immunology: Negative for rash Cardiology Exam Const Appearance: cooperative, healthy appearing, comfortable, no acute distress, well developed and well groomed Nutritional Appearance: average body habitus and overweight Orientation: alert, awake and oriented x3 Head Head: normal to inspection, normocephalic and atraumatic Ears: hearing grossly normal bilaterally Nose: external nose normal Face and Sinus: face symmetric Mouth: oral mucosae normal Teeth and gingiva: dentition normal Eyes General: appearance normal, both eyes and all related structures Eyelids: eyelids normal Conjunctivae: conjunctivae normal Pupils: PERRL EOM: EOM intact bilaterally Neck Neck: normal visual inspection and full ROM Carotids: normal carotid upstroke Chest Chest inspection: normal inspection of the chest and symmetric chest movement Auscultation: Bilateral: Clear to Auscultation Cardio Palpation: normal PMI Rate: regular rate Rhythm: regular rhythm Heart sounds: S1 normal, S2 normal and positive S4; negative gallop, murmur or rub GI GI: normal to inspection, soft, no hepatosplenomegaly and bowel sounds present Neuro General: alert, awake and oriented x3 Skin Skin: no rashes or lesions noted Extremities Pulses: Normal: Right Radial Pulse, Left Radial Pulse Lower Extremity Edema: None: Bilateral Psych Psychological: normal affect Supplemental Info He had a transthoracic echo cardiogram performed on 06/16/2012. He had left ventricular regional wall motion abnormalities. His overall LVEF was 55%. He had mild concentric LVH with mild left atrial enlargement, mild MR, trivial TR, mild focal aortic valve thickening, mild KS, and an estimated RV systolic pressure of 35 mmHg. He had decreased diastolic compliance. He also had an exercise tolerance test/imaging study performed at that time. Based upon his nuclear images he had findings compatible with previous myocardial injury/infarction involving portions of distal anteroseptal and septal apical segments as well as the basal inferoseptal basal inferior segments extending through the mid inferior segments with a notation of samina-infarct related myocardial ischemia involving portions of the basal to mid inferior segments. The gated LVEF was 53%. He subsequently underwent diagnostic cardiac catheterization on 07/06/2012. At that time based upon the report, from [facility] in [place], [place], he had normal left ventricular systolic function with an estimated LVEF of 60%, a patent MANZANARES to the mid LAD, patent SVG to the OM, and severe underlying lower brule vessel disease including the left main coronary artery and a report of an occluded and collateralized right coronary artery. His previous coronary artery bypass grafting surgery was performed through the [facility] on 11/22/2002 at [facility] in [facility]. At that time he had a MANZANARES to the LAD and an SVG to the OM. Assessment AND Plan 1. Atherosclerosis of lower brule coronary artery of lower brule heart without angina pectoris I25.10 S/P CABD with MANZANARES to LAD and SVG to OM in November 2002 at [facility]; Plan Patient's most recent heart catheterization was in July 2012. At that time his grafts were noted to be patent. His ejection fraction was 60%. It has been approximately greater than 5 years since his most recent evaluation. Because of this he will undergo a stress test prior to next office visit. Patient denies any chest pain, arm pain, jaw pain, neck pain, shortness of breath, or fatigue suggestive of angina at this time. We will continue to monitor this. We will not make any medication regimen changes and will continue risk factor modification. Orders Orders: 2. Hx of CABG Z95.1 S/P CABD with MANZANARES to LAD and SVG to OM in November 2002 at [facility]; Plan He will continue current treatment plan as outlined above. Orders Orders: 3. Essential hypertension I10 Plan Patient's blood pressure is well-controlled today in the office. We will continue to monitor this. We will not make any medication regimen changes. Orders Orders: 4. Pure hypercholesterolemia E78.00; E78.0 Plan Patient's most recent lipid panel from September 2017 showed cholesterol: 110, HDL: 35, LDL: 61, and triglyceride: 71. He will continue with current statin medication. Orders Orders: Plan Detail Other Medications New: Changed: Refilled: Additional Comments Thank you for allowing us to participate in the patients plan of care, if you have any questions please do not hesitate to call. This note was generated using a voice recognition system and there may be incorrect words, spelling or punctuation that were not noted when reviewing the office note prior to saving. 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 I25.10 Hx of CABG Z95.1 Essential hypertension I10 Hypertension type: essential hypertension Pure hypercholesterolemia E78.00; E78.0 Hyperlipidemia type: pure hypercholesterolemia Coding Level of Care Code Off vis,est,level 3 Diagnoses Atherosclerosis of lower b[place] coronary artery of lower b[place] heart without angina pectoris I25.10 Hx of CABG Z95.1 Essential hypertension I10 Hypertension type: essential hypertension Pure hypercholesterolemia E78.00; E78.0 Hyperlipidemia type: pure hypercholesterolemia 11/18/17 0725 <Electronically signed by Artem H Roof DIPPER FISH-C> Date Artem Campbell Roof DIPPER FISH-C Cosigner Signature: Date (if applicable) CC: Owen Angel DO PROGRESS Observed: 09/17/2017 Status: COMPLETED Source: [place] 11:12 AM [facility] REPOSITORY HNO ID: [id number] Author: Angelia Morel Service: (none) Author Type: (none) Type: Progress Notes Filed: 09/17/2017 11:12 AM Note Text: Radiology Service Progress Note PATIENT NAME: Xuan Arrieta Jr. DATE OF SERVICE: September 17, 2017 TIME: 11:12 AM PATIENT IDENTITY VERIFICATION COMPLETED USING TWO (2) METHODS: Patient confirmed name verbally and Date of . PATIENT GENDER DATA: Male PATIENT RELEVANT IMPLANT DATA REVIEWED: Not Applicable RADIOLOGY DEPARTMENT: CT; Exam(s) Completed: Abdomen/Pelvis PERIPHERAL IV DATA: Not applicable SIGNED BY: Angelia Morel September 17, 2017 11:12 AM CBC AND DIFFERENTIAL Collected: 09/17/2017 Status: F Source: [place] 11:00 AM [facility] REPOSITORY TYPE CODE TESTS RESULT OUT OF REFERENCE UNITS RANGE LAB WBC 3.70-11.00 k/uL WBC 10.44 LAB RBC 4.20-6.00 m/uL RBC 5.71 LAB HGB 13.0-17.0 g/dL Hemoglobin 16.2 LAB HCT 39.0-51.0 % High Hematocrit 52.2 LAB MCV 80.0-100.0 fL MCV 91.4 LAB MCH 26.0-34.0 pG MCH 28.4 LAB MCHC 30.5-36.0 g/dL MCHC 31.0 LAB RDWCV 11.5-15.0 % RDW-CV 14.1 LAB PLTCT 150-400 k/uL Platelet Count 301 LAB MPV 9.0-12.7 fL MPV 10.8 LAB ANEUT % Neut% 60.3 LAB AANEUT 1.45-7.50 k/uL Abs Neut 6.30 LAB ALYMP % Lymph% 27.0 LAB AALYMP 1.00-4.00 k/uL Abs Lymph 2.82 LAB AMONO % Blount% 8.8 LAB AAMONO <0.87 k/uL Abs Blount High 0.92 LAB AEOS % Eosin% 3.3 LAB AAEOS <0.46 k/uL Abs Eosin 0.34 LAB ABASO % Baso% 0.6 LAB AABASO <0.11 k/uL Abs Baso 0.06 LAB AUNRBC 0 /100 WBC NRBCs 0.0 LAB ABNRBC <0.01 k/uL Absolute nRBC <0.01 LAB DTYP DTYPE Auto Diff Performed By: #### CBCDIF, WSR, CMP, CRP, VITD #### [facility] [address] [address] SED RATE WESTERGREN Collected: 09/17/2017 Status: F Source: [place] 11:00 AM [facility] REPOSITORY TYPE CODE TESTS RESULT OUT OF REFERENCE UNITS RANGE LAB WSR 0-15 mm/hr Sed Rate Westergren 2 Performed By: #### CBCDIF, WSR, CMP, CRP, VITD #### [facility] [address] [address] COMP METABOLIC PANEL Collected: 09/17/2017 Status: F Source: [place] 11:00 [facility] REPOSITORY TYPE CODE TESTS RESULT OUT OF REFERENCE UNITS RANGE LAB TP 6.3-8.0 g/dL Protein, Total 6.6 LAB ALB 3.9-4.9 g/dL Low Albumin 3.8 LAB CA 8.5-10.2 mg/dL Calcium, Total 9.8 LAB TBIL 0.2-1.3 mg/dL Bilirubin, Total 0.5 LAB ALKP 36-108 U/L Alkaline Phosphatase 83 LAB AST 14-40 U/L AST 23 Result Comment: Results may be falsely increased due to interference by hemolysis. Suggest reorder as clinically indicated. LAB GLU 74-99 mg/dL Glucose 97 Result Comment: The [place] Diabetes Association (ADA) provides guidance for cutoff values for fasting glucose and random glucose. The ADA defines fasting as no caloric intake for at least 8 hours. Fas ting plasma glucose results between 100 to 125 mg/dL indicate increased risk for diabetes (prediabetes). Fasting plasma glucose results greater than or equal to 126 mg/dL meet the criteria for diagnosis of diabetes. In the absence of unequivocal hyperglycemia, results should be confirmed by repeat testing. In a patient with classic symptoms of hyperglycemia or hyperglycemic crisis, random plasma glucose results greater than or equal to 200 mg/dL meet the criteria for diagnosis of diabetes. Reference: Standards of Medical Care in Diabetes 2016, [place] [employer] Association. Diabetes Care. 2016.39(Suppl 1). LAB BUN 9-24 mg/dL BUN High 28 LAB CRET 0.73-1.22 mg/dL Creatinine 1.15 LAB NA 136-144 mmol/L Sodium 140 LAB K 3.7-5.1 mmol/L Potassium 4.6 LAB CL 97-105 mmol/L Chloride 104 LAB CO2 22-30 mmol/L Low CO2 21 LAB AGAP 9-18 mmol/L Anion Gap 15 LAB ALT 10-54 U/L ALT 17 LAB GFRAA eGFR- Amer. >60 LAB GFRNAA . eGFR-All Other Races >60 Result Comment: eGFR (Estimated GFR) Units of measure: mL/min/1.73 meters squared eGFR is derived from the reexpressed MDRD Study equation using the following parameters: serum creatinine, age, gender and race. The creatinine assay has been calibrated to be traceable to IDNV. An eGFR <60 mL/min/1.73m2 for >3 months is consistent with chronic kidney disease. Refer to KDOQI guidelines for clinical interpretation. In patients with unstable renal function, e.g. those with acute kidney injury, the eGFR may not accurately reflect actual GFR. Performed By: #### CBCDIF, WSR, CMP, CRP, VITD #### [facility] [address] [id number] C-REACTIVE PROTEIN Collected: 09/17/2017 Status: F Source: [place] 11:00 AM [facility] REPOSITORY TYPE CODE TESTS RESULT OUT OF REFERENCE UNITS RANGE LAB CRP <0.9 mg/dL C-Reactive 0.5 Protein Performed By: #### CBCDIF, WSR, CMP, CRP, VITD #### [facility] [address] [place], [place] [address] VITAMIN D 25 HYDROXY Collected: 09/17/2017 Status: F Source: [place] 11:00 AM [facility] REPOSITORY TYPE CODE TESTS RESULT OUT OF REFERENCE UNITS RANGE LAB VITD 31.0-80.0 ng/mL Vitamin D 25 43.3 Hydroxy Result Comment: Classification of 25 [place] Vitamin D status: Insufficiency/Moderate Deficiency: < or = 30 ng/mL Sufficiency/Optimal Levels: 31 to 80 ng/mL Toxicity: > 100 ng/mL Test performed by chemiluminescent immunoassay. Performed By: #### CBCDIF, WSR, CMP, CRP, VITD #### [facility] [address] [place], [place] [address] CT ABD/PEL WO IVCON Observed: 09/17/2017 Status: F Source: [place] 10:34 AM [facility] REPOSITORY * * *Final Report* * * DATE OF EXAM: Sep 17 2017 10:34AM [facility] 0531 - CT ABD/PEL WO IVCON / PROCEDURE REASON: Crossing vessel and stricture of ureter without hydronephrosis * * * * Physician Interpretation * * * * EXAMINATION: CT ABDOMEN AND PELVIS WITHOUT IV CONTRAST CLINICAL HISTORY: Idiopathic retroperitoneal fibrosis TECHNIQUE: Non-IV contrast imaging of the abdomen and pelvis was performed using standard technique, scanning from just above the dome of the diaphragm to the symphysis pubis. Unenhanced imaging is limited for the evaluation of some intra-abdominal and pelvic pathology. MQ: CTAPWO_3 Contrast: IV: None Oral: 50 ml of 50ML Omnipaque [address] Radiation dose: Integrated Dose-length product (DLP) for this visit = 795 mGy*cm. CT Dose Reduction Employed: Automated exposure control (AEC) COMPARISON: CT urogram from 03/11/2016 RESULT: Abdomen / Pelvis: Liver: Unremarkable. Biliary: The gallbladder is unremarkable. Spleen: No splenomegaly. Pancreas: Unremarkable. Adrenals: No mass. Kidneys: Right kidney is unremarkable. There is focal atrophy in the mid posterior left kidney. Previously identified hyperdense nonenhancing left renal cyst measures 2.3 cm, unchanged in size. No hydroureter or hydroureteronephrosis. GI Tract: No bowel dilation. Mild sigmoid and descending diverticulosis. Lymph Nodes: No lymphadenopathy. Mesentery/peritoneum: No ascites. Retroperitoneum: Rind of soft tissue encases the aorta from just below the renal arteries and then extends along the proximal common iliac arteries. Maximal thickness where measured previously along the distal aorta just above the bifurcation measures 8 mm, unchanged. Vasculature: There is atherosclerotic calcification of the aorta and iliac arteries without dilation. Pelvis: There appears to have been a psoas hitch on the left. No pelvic mass or lymphadenopathy. Bones/Soft Tissues: No acute abnormality. Lower thorax: There is a 2-3 mm right basilar lung nodule (3:10), unchanged from 09/11/2015. There is fibrosis at the left lung base. 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 Stable left renal hyperdense cyst. Woods Rider: PSCErika Transcribe Date/Time: Sep 17 2017 11:31A Dictated by : TERRY ROSS MD This examination was interpreted and the report reviewed and electronically signed by: TERRY ROSS MD on Sep 17 2017 11:45AM EST [id number] LIVER PROFILE Collected: 09/09/2017 Status: F Source: [place] 8:16 AM [facility] REPOSITORY TYPE CODE TESTS RESULT OUT OF RANGE REFERENCE UNITS LAB L501.1500 6.4-8.2 g/dL Normal T PROT 7.2 LAB L501.1800 3.2-5.0 g/dL Normal ALB 3.6 LAB L501.1950 2.2-4.2 g/dL Normal GLOB 3.6 LAB L501.4100 15-37 U/L Normal AST 16 LAB L501.4305 45-117 U/L Normal ALK P 100 LAB L501.4405 16-61 U/L Normal ALT 26 LAB L501.4600 0.20-1.00 mg/dL Normal T BILI 0.50 LAB L501.4700 0.00-0.30 mg/dL Normal D BILI 0.15 Performed By: #### L500.3400, L500.4100 #### [facility] [address] [place], [address] LIPID PROFILE Collected: 09/09/2017 Status: F Source: [place] 8:16 AM [facility] REPOSITORY TYPE CODE TESTS RESULT OUT OF RANGE REFERENCE UNITS LAB L501.4900 200 mg/dL Normal CHOL 110 Result Comment: <200 mg/dL Desirable 200-240 mg/dL Borderline >240 mg/dL High Risk LAB L501.5000 mg/dL Normal TRIG 71 Result Comment: The drugs N-Acetylcysteine and Metamizole may falsely depress this assay. Serum Triglycerides Reference Interval Normal <150 mg/dL Borderline high 150 - 199 mg/dL High 200 - 499 mg/dL Very High > or = 500 mg/dL LAB L501.6400 mg/dL Low HDL 35 Result Comment: The drugs N-Acetylcysteine and Metamizole may falsely depress this assay. Reference Range HDL <40 mg/dL Low HDL Cholesterol HDL >or= 60 mg/dL High HDL Cholesterol LAB L501.6500 0-130 mg/dL Normal LDL 61 LAB L501.6600 5-40 mg/dL Normal VLDL 14 Performed By: #### L500.3400, L500.4100 #### [facility] [address] [facility] [place], [address] ALLERGIES ALLERGIES DATE TYPE / CODE NAME / CODE REACTION SEVERITY SOURCE 05/14/2018 Drug No Known Unknown [facility] Allergy/4160 Allergies/F00 [facility] 86863(SNOMED 1978988(RXNOR Repository CT) M) 08/08/2009 Environ/4201 DUST COUGH [facility] [address]85(SNOMED [address] [place] [address]) Repository ENCOUNTERS ENCOUNTERS ADMIT/DISCHARGE ACCOUNT ADMITTING ENCOUNTER LOCATION SOURCE NUMBER CLASS 05/27/2018/05/27/19 [id number] Ambulatory [address] ing:CLSP Repository 05/14/2018 [id number] Ambulatory [facility] ing:POLAB3 Repository 05/14/2018/05/14/19 [id number] Ambulatory BMSBuilding:B [place] [facility] Repository 05/12/2018 [id number] Ambulatory [facility] ing:CVS Repository 05/12/2018 [id number] Ambulatory BMSBuilding:W [facility] Repository 03/16/2018 [id number] Ambulatory [facility] ing:LAB Repository 11/17/2017/11/18/19 [id number] Ambulatory BMSBuilding:B [place] [address] [facility] Repository 09/17/2017/09/18/19 [id number] Ambulatory [address] Repository 09/17/2017/09/18/19 [id number] Ambulatory [address] Repository 09/17/2017/09/18/19 [id number] Ambulatory [address] Repository 09/09/[id number] [facility] PAYERS PAYERS ENCOUNTER GUARANTOR PAYER SUBSCRIBER SOURCE 05/27/2018 XUAN W Primary XUAN Bermudez [id number] CR Insurance:MEDICARE DUNMIREDOB: [address], PART A [facility] [id number] [address]Aec: Number: Repository [id number] (HP) Date:2018-05-14 05/27/2018 Secondary XUAN W [facility] Insurance:MEDICAL DUNMIREDOB: [facility] [id number] Hospital Number: Repository [id number] Date:[id number] [place] [id number]: 05/27/2018 Tertiary NOT GIVENUNK [facility] Insurance:SELF PAY [facility] Number: Effective Repository Date:2018-05-14 05/14/2018 XUAN W Primary XUAN Bermudez [id number] CR Insurance:MEDICARE DUNMIREDOB: [address], PART [address] [facility] [id number] [facility] Hospital [address]Hma: Number: Repository [id number] (HP) Date:2018-05-14 05/14/2018 Secondary XUAN W [facility] Insurance:MEDICAL DUNMIREDOB: [address] [place] [id number] Number: Repository [id number] Date:[id number] [address]RL: 05/14/2018 Tertiary NOT GIVENUNK [facility] Insurance:SELF PAY [facility] Number: Effective Repository Date:2018-05-14 05/14/2018 XUAN W Primary XUAN W [place] [id number] CR Insurance:MEDICARE DUNMIREDOB: [address], PART A [facility] [id number] [facility] Hospital [address]Haq: Number: Repository [id number] (HP) Date:2017-11-17 05/14/2018 Secondary XUAN W [place] Insurance:MEDICAL DUNMIREDOB: [facility] [id number] Hospital Number: Repository [id number] Date:2857-24-36MG [address] [address]ZV: 05/14/2018 Tertiary NOT GIVENUNK [place] Insurance:SELF PAY [facility] Number: Effective Repository Date:2018-05-13 05/12/2018 XUAN W Primary XUAN W [facility] [id number] CR Insurance:MEDICARE DUNMIREDOB: [address], PART A [facility] [id number] [facility] Hospital [address]Ivj: Number: Repository [id number] (HP) Date:2017-11-17 05/12/2018 Secondary XUAN W [facility] Insurance:MEDICAL DUNMIREDOB: [facility] [id number] Hospital Number: Repository [id number] Date:[id number] [address]QK: 05/12/2018 Tertiary NOT GIVENUNK [place] Insurance:SELF PAY [facility] Number: Effective Repository Date:2017-11-17 05/12/2018 XUAN W Primary XUAN W [place] [id number] CR Insurance:MEDICARE DUNMIREDOB: [address], PART A [facility] [id number] County General Hospital [address]Jco: Number: Repository [id number] (HP) Date:2017-11-17 05/12/2018 Secondary XUAN W [facility] Insurance:MEDICAL DUNMIREDOB: [address] [place] [id number] Hospital Number: Repository [id number] Date:3332-93-81[address], [place] [address]IQ: 05/12/2018 Tertiary NOT GIVENUNK [place] Insurance:SELF PAY [facility] Number: Effective Repository Date:2018-05-12 03/16/2018 XUAN W Primary XUAN Bermudez [id number] CR Insurance:MEDICARE DUNMIREDOB: [address] [facility] [id number] [place] [address]Mts: Number: Repository [id number] () Date:2018-03-16 03/16/2018 Secondary XUAN W [facility] Insurance:DAYRON LIFE DUNMIREDOB: [facility] [id number] [facility] [id number] Repository Date:1785-04-47QE [address] [place] [address] [id number]: 03/16/2018 Tertiary NOT GIVENUNK Aidan Insurance:SELF PAY [facility] Number: Effective Repository Date:2018-03-16 11/17/2017 XUAN W Primary XUAN W A[place] [id number] Insurance:MEDICARE DUNMIREDOB: [facility] PART A [facility] [id number], Number: Repository [place] [address]Ihy: [id number] Date:2017-05-15 () 11/17/2017 Secondary XUAN W [place] Insurance:DAYRON LIFE DUNMIREDOB[id number] [id number] Repository Date:[id number] [address]YW: 11/17/2017 Tertiary NOT GIVENUNK Aidan Insurance:SELF PAY [facility] Number: Effective Repository Date:2017-11-17 09/09/2017 XUAN W Primary XUAN W Aidan [id number] Insurance:MEDICARE DUNMIREDOB: [address] PART A [facility] [id number] [address]Joh: Number: Repository [id number] (HP) Date:2017-09-09 09/09/2017 Secondary XUAN Bermudez Insurance:[employer] DUNMIREDOB: Community INS [facility] Number: [id number] Hospital [id number] Repository Date:[id number] [address]XK: 09/09/2017 Tertiary NOT GIVENNICK [place] Insurance:SELF PAY [facility]: Effective Repository Date:2017-09-09
== END 2018-05-27 13:40 | disposition home or self-care (01) ==
LOC: CLSP 07:04
PROVIDERS: Family Provider Family Medicine; PCP Family Medicine; Referring Provider Internal Medicine Cardiovascular Disease; Visit Provider Internal Medicine Cardiovascular Disease
DX: I25.119 Atherosclerotic heart disease of native coronary artery with unspecified angina pectoris (principal); I10 Essential (primary) hypertension; E78.2 Mixed hyperlipidemia; I25.2 Old myocardial infarction; E66.3 Overweight; Z95.1 Presence of aortocoronary bypass graft; Z68.28 Body mass index [BMI] 28.0-28.9, adult; Z87.891 Personal history of nicotine dependence; Z79.82 Long term (current) use of aspirin; Z79.899 Other long term (current) drug therapy
CPT/HCPCS: 36416; 71046; 85610; 93459; 99152; 99153; J7040; C1769; C1894; Q9967

== ENCOUNTER → 2018-06-15 08:28 | Outpatient (CLI) | payer MEDICARE, OTHER, SELFPAY ==
[2018-06-12 09:29] VITALS: BMI 28.8
[2018-06-15 09:14] VITALS: PULSE 54; PULSE 63; PULSE 74; PULSE 81; PULSE 83; PULSE 84; PULSE 90; PULSE 97; O2SAT 92; O2SAT 93; O2SAT 94; O2SAT 95; O2SAT 96
--- NOTE | 2018-06-15 13:55 | PCM.PSN.6M ---
PSN 6 Minute Walk Test - 6 Minute Walk Test 6 Minute Walk Test: 6 Minute Walk Test PSN:6-Minute Walk Test Start: 06/15/18 09:14 Freq: Status: Active Protocol: RESP.6MINW Document 06/15/18 09:14 [facility] (Rec: 06/15/18 09:19 [facility] [id number]) 6 Minute Walk Test Date Performed 06/15/18 Time Performed 09:00 Height 6 ft Weight: 212 lb Weight in Pounds 212.[address]: Rudy Patel FIO2 (% Oxygen) 21 Assistive device used: None Pre-test Oxygen Delivery Method Room Air Pulse Ox (%) 95 Pulse Rate (60-100 beats/min) 54 L Dyspnea Rebecca Scale (0-10) 1 1st minute Oxygen Delivery Method Room Air Pulse Ox (%) 92 Pulse Rate (60-100 beats/min) 74 Dyspnea Rebecca Scale (0-10) 2 2nd minute Oxygen Delivery Method Room Air Pulse Ox (%) 93 Pulse Rate (60-100 beats/min) 81 Dyspnea Rebecca Scale (0-10) 2 3rd minute Oxygen Delivery Method Room Air Pulse Ox (%) 93 Pulse Rate (60-100 beats/min) 83 Dyspnea Rebecca Scale (0-10) 2 4th minute Oxygen Delivery Method Room Air Pulse Ox (%) 93 Pulse Rate (60-100 beats/min) 84 Dyspnea Rebecca Scale (0-10) 2 5th minute Oxygen Delivery Method Room Air Pulse Ox (%) 93 Pulse Rate (60-100 beats/min) 90 Dyspnea Rebecca Scale (0-10) 2 6th minute Oxygen Delivery Method Room Air Pulse Ox (%) 94 Pulse Rate (60-100 beats/min) 97 Dyspnea Rebecca Scale (0-10) 2 Post-test Oxygen Delivery Method Room Air Pulse Ox (%) 96 Pulse Rate (60-100 beats/min) 63 Dyspnea Rebecca Scale (0-10) 0 Full Laps Walked 24 Partial Lap, Number of Tiles Walked 36 Total Distance Walked (ft) 1452 - Interpretation Interpretation: The patient ambulated 1452 feet over the course of 6 minutes beginning on room air without assistive devices or breaks. Pretesting oxygen saturation was noted to be 95% on room air. With ambulation, the lizeth oxygen saturation was 92%. There was no significant exertional oxygen desaturation. - Recommendations Recommendations: There is no indication for the use of supplemental oxygen at this time.
== END ==
PROVIDERS: Family Provider Family Medicine; PCP Family Medicine; Referring Provider Internal Medicine Critical Care Medicine; Visit Provider Internal Medicine Critical Care Medicine
DX: R06.02 Shortness of breath (principal)
CPT/HCPCS: 94618

== ENCOUNTER → 2018-06-22 07:45 | Outpatient (CLI) | payer MEDICARE, OTHER, SELFPAY ==
[2018-06-12 09:29] VITALS: BMI 28.8
--- NOTE | 2018-06-22 15:02 | PFTCOMP ---
COMPLETE PULMONARY FUNCTION TEST INTERPRETATION Brief HPI: Patient is a 72 year old male, currently under the care of Dr. Patel, who presents to [facility] for complete pulmonary function tests secondary to diagnosis of dyspnea. Respiratory therapist reports good effort and reproducible results. Interpretation: Forced expiration spirometry shows a moderate large airways obstructive ventilatory defect with an FEV1 of 68% predicted. There is no significant bronchodilator response by strict ATS criteria. Spirograms are of good quality and plateau slowly, indicating slowly emptying areas of the lungs. The respiratory flow volume loop shows decreased expiratory flow rates at all lung volumes consistent with airway obstruction. Lung volumes by body plethysmography show a normal total lung capacity at 6.04 L, 87% predicted. All other lung volumes are within normal limits. Diffusion capacity by carbon monoxide is normal at 89% predicted. The airway resistance is normal. No previous pulmonary function tests were available for review. Impression: Irreversible moderate large airways obstructive ventilatory defect with preserved diffusion capacity
== END ==
PROVIDERS: Family Provider Family Medicine; PCP Family Medicine; Referring Provider Internal Medicine Critical Care Medicine; Visit Provider Internal Medicine Critical Care Medicine
DX: R06.02 Shortness of breath (principal)
CPT/HCPCS: 94060; 94726; 94729

== ENCOUNTER → 2022-06-05 | Outpatient (CLI) | payer MEDICARE, OTHER, SELFPAY ==
--- NOTE | 2022-06-05 10:05 | RAD_ITS ---
INDICATION: Shortness of breath EXAMINATION/TECHNIQUE: X-RAY - XR Chest 2 Views COMPARISON: May 14, 2018. FINDINGS: LINES/DEVICES: Sternotomy wires and surgical clips over the mediastinum. LUNGS: No consolidation, edema or effusion. No pneumothorax. MEDIASTINUM AND CARDIOVASCULAR STRUCTURES: Cardiac silhouette not enlarged. Central airways and mediastinal contour are unremarkable. BONES AND SOFT TISSUES: Unremarkable. RAD/Chest PA and Lateral IMPRESSION: No radiographic evidence of acute cardiopulmonary disease. Electronically Signed: Jeff Guzmán DO at 21:37 EST Reading Location ID and State: [facility] / [place] Tel [phone], Service support ,
[2022-06-05 11:18] LABS: Hematocrit 49.9 % (40-54); Hemoglobin 15.8 g/dL (13.0-16.5); Mean Corp Hgb Conc 31.7 g/dL (32-36); Mean Corpuscular Hgb 28.6 pg (27.0-32.0); Mean Corpuscular Volume 90.4 fL (80-94); Mean Platelet Vol. 9.8 fl (6.2-12.0); Platelet Count 263 K/mm3 (150-450); RBC Distribution Width CV 13.8 % (11.6-14.6); RBC Distribution Width SD 46.1 fl (35.1-43.9); Red Blood Count 5.52 M/mm3 (4.6-6.2); White Blood Count 9.6 K/mm3 (4.4-11.0)
[2022-06-05 11:48] LABS: BNP,B-Type NATRIURETIC PEPTIDE 93.2 pg/mL (0-100)
[2022-06-05 11:55] LABS: Anion Gap 9 (5-15); BUN 18 mg/dL (7-18); BUN/Creat Ratio 15.5 RATIO (10-20); Calcium,Total 9.4 mg/dL (8.5-10.1); Chloride 107 mmol/L (98-107); Creatinine, Serum 1.16 mg/dL (0.70-1.30); EST Glomerular Filtration Rate 65 mL/min (>60); Est Glom Filt Rate - Afr Amer 78 mL/min (>60); Glucose 123 mg/dL (74-106); Potassium 4.3 mmol/L (3.5-5.1); Sodium Level 141 mmol/L (136-145); Thyroid Stim Hormone (TSH) 1.69 uIU/mL (0.358-3.74)
== END | disposition home or self-care (01) ==
PROVIDERS: Visit Provider Nurse Practitioner Family
DX: R06.02 Shortness of breath (principal); J44.9 Chronic obstructive pulmonary disease, unspecified; I25.2 Old myocardial infarction; Z95.1 Presence of aortocoronary bypass graft; R53.83 Other fatigue
CPT/HCPCS: 36415; 71046; 80048; 83880; 84443; 85027

== ENCOUNTER → 2022-06-18 | Outpatient (CLI) | payer MEDICARE, OTHER, SELFPAY ==
--- NOTE | 2022-06-18 06:11 | ECHOD_ITS ---
Reason For Study: DYSPNEA Procedure This was a 2D Doppler, Color Flow transthoracic echocardiogram. The study was technically difficult. Exam performed in department. Left Ventricle Mild segmental systolic dysfunction (see wall motion). The estimated ejection fraction is 50 %. No evidence for diastolic dysfunction. Infero-Basal: Akinetic. Mid-Inferior: Akinetic. Mid- inferoseptal : Hypokinetic. Mid-anteroseptal : Hypokinetic. Inferior [place] : Hypokinetic. Septal [place] : Hypokinetic. Right Ventricle Normal RV size. Normal systolic function. Atria The left atrium is mildly enlarged. Normal right atrium. No doppler evidence for ASD. Mitral Valve There is mild mitral annular calcification. Extension of the mitral annular calcification onto the base of the posterior mitral valve leaflet. Mild (1+) mitral valve insufficiency. Tricuspid Valve Normal tricuspid valve. Trivial tricuspid valve insufficiency. Unable to estimate RV systolic pressure/pulmonary artery pressure due to technically difficult study. Aortic Valve Trisinus/trileaflet aortic valve. Moderate focal aortic valve calcification. Trivial aortic valve insufficiency. Pulmonic Valve The pulmonic valve is not well visualized. Mild (1+) pulmonic valve insufficiency. Great Vessels The aortic root is not well visualized. Pericardium/Pleural No pericardial effusion. MMode/2D Measurements & Calculations LAV(MOD-bp): 65.8 ml LVAd ap4: 34.0 cm2 SV(MOD-sp4): 62.4 ml LAV(MOD-bp) Indexed: 29.9 ml/m2 LVLd ap4: 8.8 cm LAV(MOD-sp2): 66.9 ml EDV(MOD-sp4): 110.8 ml LAV(MOD-sp4): 65.4 ml EDV(sp4-el): 111.9 ml LVAs ap4: 19.8 cm2 LVLs ap4: 7.2 cm ESV(MOD-sp4): 48.4 ml ESV(sp4-el): 46.1 ml EF(MOD-sp4): 56.3 % EF(sp4-el): 58.8 % SV(sp4-el): 65.8 ml LA A4 area: 20.7 cm2 RA A4 area: 6.1 cm2 Time Measurements MV dec time: 0.33 sec Doppler Measurements & Calculations MV E max javon: 55.7 cm/sec Lat Peak E' Javon: 12.7 cm/sec Med Peak E' Javon: 4.6 cm/sec MV A max javon: 77.4 cm/sec E/E' lat: 4.4 E/E' med: 12.2 MV E/A: 0.72 MV V2 max: 86.8 cm/sec Ao V2 max: 168.4 cm/sec MV max P.0 mmHg MV dec slope: 175.8 cm/sec2 Ao max P.3 mmHg MV V2 mean: 51.7 cm/sec Ao V2 mean: 114.3 cm/sec MV mean P.2 mmHg Ao mean P.1 mmHg MV V2 VTI: 35.3 cm Ao V2 VTI: 35.8 cm AV (velocity ratio): 0.61 LV V1 max: 92.8 cm/sec MR max javon: 539.5 cm/sec PA V2 max: 111.1 cm/sec LV V1 max P.4 mmHg MR max P.4 mmHg PA V2 mean: 77.4 cm/sec LV V1 mean P.9 mmHg LV V1 mean: 65.0 cm/sec LV V1 VTI: 21.9 cm ECHO/Echo Complete Interpretation Summary The study was technically difficult. Mild segmental systolic dysfunction (see wall motion). The estimated ejection fraction is 50 %. The left atrium is mildly enlarged. There is mild mitral annular calcification. Extension of the mitral annular calcification onto the base of the posterior mi tral valve leaflet. Mild (1+) mitral valve insufficiency. Trivial tricuspid valve insufficiency. Moderate focal aortic valve calcification. Mild (1+) pulmonic valve insufficiency. Unable to estimate RV systolic pressure/pulmonary artery pressure due to techni bear difficult study. No evidence for diastolic dysfunction. Ordering Physician: Artem Garza Referring Physician: [facility] Performed By: Leonora Flynn RCS
--- NOTE | 2022-06-18 09:36 | STRESSREP ---
Stress Test Report Date: 06-18-2022 Procedure: Pharmacologic stress nuclear imaging study Indications: Shortness of breath/dyspnea on exertion; CAD; CABG; hyperlipidemia; hypertension Consent: Per the patient Procedure: The patient underwent pharmacologic (Regadenoson 0.4mg ) evaluation with a peak heart rate of 70 beats per minute (48%predicted maximal heart rate) and a resting blood pressure of 118/72 mmHg and a peak blood pressure of 118/72 mmHg. The baseline ECG demonstrated sinus bradycardia; poor R wave progression; nonspecific ST/T wave abnormality. The peak pharmacologic ECG demonstrated no obvious ECG changes. There was a rare PVC during recovery. There was no complaint of chest discomfort during pharmacologic infusion or recovery. The examination was discontinued secondary to completion of protocol. Impression: 1. Pharmacologic (Regadenoson) evaluation 2. Peak pharmacologic ECG with no obvious ECG changes. 3. There was a rare PVC during recovery. 4. Nuclear images pending Myocardial perfusion imaging study: Technique: The patient was injected with 13.7 millicuries of technetium 99m Cardiolite and subsequently rest SPECT Cardiolite nuclear imaging was obtained in the horizontal long, vertical long, and short axis views. The patient underwent pharmacologic (Regadenoson) evaluation with a peak heart rate of 70 beats per minute (48% percent predicted maximal heart rate) and a resting blood pressure of 118/72 mmHg and a peak blood pressure of 118/72 mmHg. The patient was injected with 39.8 millicuries of technetium 99m Cardiolite and subsequently stress SPECT Cardiolite nuclear imaging was obtained in the horizontal long, vertical long, and short axis views. A gated Cardiolite study at peak stress was obtained. Interpretation: Rest and stress SPECT Cardiolite nuclear imaging status post realignment, normalization, and attenuation correction demonstrate the appearance of diminished myocardial perfusion/tracer uptake in portions of the apical segments without significant change between rest and stress as well as the post-rest images demonstrating the appearance of diminished myocardial perfusion in the mid inferior segments. There is diminished end-systolic thickening and brightening. The gated Cardiolite study demonstrates diminished myocardial thickening and inward wall motion. The reported LVEF is 43%. Impression: 1. Rest and stress SPECT cardiac nuclear imaging demonstrate myocardial perfusion changes potentially compatible with physiologic apical thinning although an area of previous myocardial injury/infarction cannot necessarily be excluded as well as an area concerning for stress-induced myocardial ischemia in the mid inferior segments. 2. The gated Cardiolite study reports an LVEF of 43%. This note was generated with [employer] software. It may contain incorrect words, spelling, and punctuation that were not noted in checking the note before signing.
== END | disposition home or self-care (01) ==
LOC: CVS 06:11
PROVIDERS: Visit Provider Nurse Practitioner Family
DX: I25.2 Old myocardial infarction (principal); I25.10 Atherosclerotic heart disease of native coronary artery without angina pectoris; E78.2 Mixed hyperlipidemia; I10 Essential (primary) hypertension; R53.83 Other fatigue; Z95.1 Presence of aortocoronary bypass graft; R06.02 Shortness of breath
CPT/HCPCS: 78452; 93017; 93306; A9500; A4216; J2785

== ENCOUNTER → 2022-07-10 | Outpatient (CLI) | payer MEDICARE, OTHER, SELFPAY ==
[2022-07-10 10:38] LABS: Absolute Lymphocyte Count 2.14 X10^3/uL (0.83-4.51); Absolute Neutrophil Count 5.7 X10^3/uL (2.0-7.7); Basophil# 0.07 X10^3/uL; Basophil% 0.8 % (0-1); Eosinophil# 0.28 X10^3/uL; Eosinophils% 3.1 % (0-5); Hematocrit 49.9 % (40-54); Hemoglobin 16.1 g/dL (13.0-16.5); Lymphocyte # 2.14 X10^3/ul (0.83-4.51); Lymphocyte % 23.9 % (19-41); Mean Corp Hgb Conc 32.3 g/dL (32-36); Mean Corpuscular Volume 89.7 fL (80-94); Mean Platelet Vol. 9.5 fl (6.2-12.0); Monocyte# 0.78 X10^3/uL; Monocyte% 8.7 % (0-10); NRBC Flagged by Analyzer 0 % (0-5); Neutrophil # 5.66 X10^3/uL (2.7-7.7); Neutrophil % 63.2 % (47-70); Platelet Count 284 K/mm3 (150-450); RBC Distribution Width CV 13.9 % (11.6-14.6); RBC Distribution Width SD 45.9 fl (35.1-43.9); Red Blood Count 5.56 M/mm3 (4.6-6.2)
[2022-07-10 10:51] LABS: International Normalized Ratio 1.1; Prothrombin Time (Protime)PT. 13.6 SECONDS (11.7-14.9)
[2022-07-10 10:52] LABS: Partial Thromboplast Time 29.3 Seconds (24.1-36.2)
[2022-07-10 11:06] LABS: Anion Gap 7 (5-15); BUN 26 mg/dL (7-18); BUN/Creat Ratio 21.3 RATIO (10-20); Calcium,Total 9.7 mg/dL (8.5-10.1); Chloride 109 mmol/L (98-107); Creatinine, Serum 1.22 mg/dL (0.70-1.30); EST Glomerular Filtration Rate 61 mL/min (>60); Est Glom Filt Rate - Afr Amer 74 mL/min (>60); Glucose 144 mg/dL (74-106); Potassium 4.5 mmol/L (3.5-5.1); Sodium Level 140 mmol/L (136-145)
== END | disposition home or self-care (01) ==
LOC: LAB 10:23
PROVIDERS: PCP Nurse Practitioner; Referring Provider Nurse Practitioner Family; Visit Provider Nurse Practitioner Family
DX: I10 Essential (primary) hypertension (principal); E78.2 Mixed hyperlipidemia; I25.10 Atherosclerotic heart disease of native coronary artery without angina pectoris; R94.39 Abnormal result of other cardiovascular function study; R06.02 Shortness of breath
CPT/HCPCS: 36415; 80048; 85025; 85610; 85730

== ENCOUNTER 2022-07-16 07:14 | Day surgery (SDC) | payer MEDICARE, OTHER, SELFPAY ==
[2022-07-15 11:51] VITALS: BMI 30.5
--- NOTE | 2022-07-15 12:57 | PCM.HP.BLA ---
History and Physical Date of Admission: 07/16/22 [facility] [address] [place], [place] [address] OFFICE VISIT Date of Service:? 06/24/22 MR#: [id number] Acct: [id number] Name:XUAN GUTIÉRREZ Jr. Rep #: [id number] : 1945 ?Provider: ?JAYSON Garza Age/Sex:? 76/M Location: [facility] Status: Signed HPI HPI History of Present Illness Surgical H&P: Yes Details: Xuan Salcedo is a 76-year-old white male who presents today for outpatient cardiovascular follow-up of his history of CAD, CABG (MANZANARES to the LAD, SVG to the OM-2003 at [facility] in [place], [place]), hyperlipidemia, and hypertension.? He states he has been following through the [facility].? He denies chest, arm, jaw, or neck discomfort. He continues with episodes of breathing hard. This is noted going up stairs. He denies shortness of breath at rest, orthopnea, PND, sudden weight gain, or bilateral lower extremity edema. He denies chronic cough. He denies palpitations, lightheadedness, dizziness, near syncope, or syncopal episodes. He denies claudication issues. He denies fever or chills. He denies blood in urine, blood in stool, or epistaxis. He denies myalgia. He continues fatigue. His exercise tolerance is stable. Intake Vital Signs ? 06/24/2314:40 06/24/2314:40 Height 6 ft 6 ft Weight: 225 lb ? BMI 30.5 ? BP 132/82 H ? Blood Pressure Location Lt brachial ? Position Sitting ? Respiration 18 ? Pulse 73 ? Pulse Source Monitor ? Pulse Oximetry (%) 95 ? Intake Visit Reasons:?PER M.S. Cart Driver Required: No Is patient in pain?: No Allergies No Known Allergies Allergy (Verified 06/24/22 15:40) Medications calcium carbonate 600 mg-vitamin D3 5 mcg (200 unit) capsule (Calcium 600 + D(3)) 1 cap PO QDAY 05/13/17 [History Confirmed 06/24/22] pantoprazole 40 mg tablet,delayed release 40 mg PO QDAY 05/15/17 [History Confirmed 06/24/22] amlodipine 5 mg tablet (Norvasc) 5 mg PO BID #180 tabs 11/17/17 [Rx Confirmed 06/24/22] clopidogrel 75 mg tablet (Plavix) 75 mg PO QDAY #30 tabs 05/14/18 [Rx Confirmed 06/24/22] naproxen 250 mg tablet 250 mg PO BID PRN Pain 05/14/18 [History Confirmed 06/24/22] vitamins A,C,O-sosq-qdohhv 4,296 mcg-226 mg-90 mg capsule (PreserVision AREDS) 1 cap PO BID 12/28/18 [History Confirmed 06/24/22] isosorbide mononitrate 30 mg tablet,extended release 24 hr 30 mg PO DAILY #90 tabs 07/08/19 [Rx Confirmed 06/24/22] metoprolol tartrate 25 mg tablet 12.5 mg PO BID 07/08/19 [History Confirmed 06/24/22] atorvastatin 80 mg tablet 40 mg PO QHS 04/24/20 [History Confirmed 06/24/22] fexofenadine 60 mg tablet 60 mg PO QDAY PRN 04/24/20 [History Confirmed 06/24/22] ipratropium bromide 21 mcg (0.03 %) nasal spray 2 spray intranasal TID 04/24/20 [History Confirmed 06/24/22] losartan 50 mg tablet 50 mg PO DAILY 04/24/20 [History Confirmed 06/24/22] aspirin 81 mg tablet,delayed release (Adult Aspirin Regimen) 81 mg PO DAILY 02/18/22 [History Confirmed 06/24/22] [facility] Medical History?(Updated 06/24/22 @ 16:26 by Artem Garza PROJECT ADMINISTRATIVE ASSISTANT, PROJECT ADMINISTRATIVE ASSISTANT-C) Age-related macular degeneration Atherosclerosis of [place] coronary artery of [place] heart without angina pectoris Atherosclerotic heart disease of [place] coronary artery without angina pectoris De La Garza esophagus Carotid bruit Chest pain COPD (chronic obstructive pulmonary disease) Dyspnea on exertion Essential hypertension Fatigue Hyperlipidemia Hypertension Mixed hyperlipidemia 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 History of kidney surgery History of tonsillectomy History of vasectomy Hx of CABG (~11/22/02) Presence of aortocoronary bypass graft Family History? Father?? Myocardial infarctionBrother Hx of CABG Social History? Smoking Status:? Former smoker Tobacco: How many years used:? 30 how long ago did patient quit smoking:? 2015, 0.5ppd second hand exposure:? Yes alcohol intake:? current alcohol intake frequency: a few times a week substance use type:? does not use caffeine:? Yes Type: coffee Number of servings: 2 ROS Const Const: Positive for fatigue; Negative for weakness, body ache, fever(s) or chills ENT ENT: Negative for dizziness or Nosebleed/epistaxis Cardio Chest Pain: No Palpitations: No Edema: None Muscle aches with walking: None Resp Respiratory: Positive for SOB with activity; Negative for SOB at rest, SOB orthopnea\SOB lying down, Cough or paroxysmal nocturnal dyspnea GI GI: Negative nausea, vomiting blood/hematemesis, bright, red blood in stools or black,tarry stools : Negative for hematuria or frequent nighttime urination/ nocturia Musc Musc: Negative for muscle aches/ myalgia Skin Skin: Negative non-healing lesions or rash Neuro Neuro: Negative for dizziness, lightheadedness, near syncope, syncope, orthostatic symptoms or weakness Endo Endo: Positive for fatigue Allergy Allergy/Immunology: Negative for rash Cardiology Exam Const Appearance: cooperative, healthy appearing, comfortable and no acute distress Nutritional Appearance: average body habitus and well nourished Orientation: alert, awake and oriented x3 Head Head: normal to inspection Ears: hearing grossly normal bilaterally Nose: external nose normal Face and Sinus: face symmetric Mouth: moist mucous membranes Eyes General: appearance normal, both eyes and all related structures Eyelids: eyelids normal EOM: EOM intact bilaterally Neck Neck: normal visual inspection and no JVD Carotids: normal carotid upstroke Chest Chest inspection: normal inspection of the chest, symmetric chest movement and normal respiratory effort; Negative cough Auscultation: Bilateral: Clear to Auscultation Cardio Rate: regular rate Rhythm: regular rhythm Heart sounds: S1 normal and S2 normal; Negative rub, gallop or murmur GI GI: normal to inspection Neuro General: patient alert, patient awake, patient oriented x3 and CN's II-XI intact bilaterally Skin Skin: no rashes or lesions noted Extremities Pulses: Normal: Right Posterior Tibial Pulse, Left Posterior Tibial Pulse, Right Radial Pulse and Left Radial Pulse Lower Extremity Edema: None: Bilateral Psych Psychological: normal affect Supplemental Info Supplemental Information Echocardiogram from 06/18/2022: Interpretation Summary The study was technically difficult. Mild segmental systolic dysfunction (see wall motion). The estimated ejection fraction is 50 %. The left atrium is mildly enlarged. There is mild mitral annular calcification. Extension of the mitral annular calcification onto the base of the posterior mitral valve leaflet. Mild (1+) mitral valve insufficiency. Trivial tricuspid valve insufficiency. Moderate focal aortic valve calcification. Mild (1+) pulmonic valve insufficiency. Unable to estimate RV systolic pressure/pulmonary artery pressure due to technically difficult study. No evidence for diastolic dysfunction. Echocardiogram from 05/12/2018: Interpretation summary The study was technically difficult. Contrast injection was performed. Segmental dysfunction with preserved ejection fraction (see wall motion). The estimate ejection fraction is 55%. The left atrium is mildly enlarged. Mild (1+) mitral valve insufficiency. Trivial tricuspid valve insufficiency. Mild diffuse aortic valve thickening. Mild focal aortic valve calcification. Mild (1+) pulmonic valve insufficiency. Right ventricular systolic pressure estimated be 38 mmHg. No evidence for diastolic dysfunction. Stress test from 06/18/2022: Impression: 1.? Pharmacologic (Regadenoson) evaluation 2.? Peak pharmacologic ECG with no obvious ECG changes. 3.? There was a rare PVC during recovery. 4.? Nuclear images pending Impression: 1.? Rest and stress SPECT cardiac nuclear imaging demonstrate myocardial perfusion changes potentially compatible with physiologic apical thinning although an area of previous myocardial injury/infarction cannot necessarily be excluded as well as an area concerning for stress-induced myocardial ischemia in the mid inferior segments. 2.? The gated Cardiolite study reports an LVEF of 43%. Heart catheterization from 05/27/2018: CONCLUSIONS Elevated Left Ventricular End Diastolic Pressure Segmented LV systolic dysfunction- Mild LVEF: by LV gram 50 % [place] Multivessel CAD MANZANARES to LAD: patent SVG to OM: patient Left to Right collateral flow RECOMMENDATIONS Risk factor modification Medical therapy CORONARY ANGIOGRAPHY LEFT HEART ASSESSMENT Left Ventricular Ejection Fraction: by LV Gram 50 % Inferior Basal Akinesis. Inferior Mid Hypokinesis Elevated Left Ventricular End Diastolic Pressure LVEDP: 22 mmHg LEFT MAIN: Moderate calcification, 50 % Stenosis LEFT ANTERIOR DESCENDING ARTERY: MID LAD: is occluded CIRCUMFLEX ARTERY: PROX CIRC: 95 % Stenosis RAMUS: Mild luminal irregularities RIGHT CORONARY ARTERY: MID RCA: is occluded GRAFTS: ?MANZANARES graft to the Mid LAD is patent with no angiographically significant appearing disease distal to the anastomosis Saphenous Vein graft to the 1st OM is patent with no angiographically significant appearing disease distal to the anastomosis COLLATERAL FLOW: Collateral flow from Left to Right VALVE FINDINGS: Normal Aortic Valve function Normal Mitral Valve function AORTIC ROOT: Angiographically normal His previous coronary artery bypass grafting surgery was performed through the [facility] system on 11/22/2002 at [facility] in [facility] [place].? At that time he had a MANZANARES to the LAD and an SVG to the OM. Labs: ?? ? No Data to Display Diagnostics: ?? ? Echocardiogram ? Stress Test NM ? Stress Test ? Chest X-Ray ? Pulmonary: ?? ? Pulmonary Function Test ? Assessment and Plan Assessment and Plan (1) Abnormal stress test: ?Status:?Acute ?Plan: He will proceed with heart catheterization.? Depending on results, further recommendation will be made. (2) Atherosclerosis of [place] coronary artery of [place] heart without angina pectoris: ?Status:?Chronic ?Comment: S/P CABD with MANZANARES to LAD and SVG to OM in November 2002 at [facility]; ?Plan: His last heart catheterization May 2018 showed patent MANZANARES to LAD, patent SVG to OM, and collateral flow from left to right.? He continues to acknowledge breathing difficulty as well as fatigue.? Depending on results of heart catheterization, further recommendation will be made, that may include medication adjustment such as advancing isosorbide. (3) Mixed hyperlipidemia: ?Status:?Chronic ?Plan: He will continue atorvastatin 40 mg p.o. daily. (4) Essential hypertension: ?Status:?Chronic ?Plan: Patient's blood pressure is well-controlled.? We will continue to monitor. We will not make any medication regimen changes. ? ? ? Orders: Orders Left Heart Cath w/Grafts 07/16/22 E78.2 - Mixed hyperlipidemia, I10 - Essential (primary) hypertension, I25.10 - Atherosclerotic heart disease of [place] coronary artery without angina pectoris, R94.39 - Abnormal result of other cardiovascular function study ? Basic Metabolic Profile (BMP) Today E78.2 - Mixed hyperlipidemia, I10 - Essential (primary) hypertension, I25.10 - Atherosclerotic heart disease of [place] coronary artery without angina pectoris, R94.39 - Abnormal result of other cardiovascular function study ? Partial Thromboplast Time Today E78.2 - Mixed hyperlipidemia, I10 - Essential (primary) hypertension, I25.10 - Atherosclerotic heart disease of [place] coronary artery without angina pectoris, R06.02 - Shortness of breath, R94.39 - Abnormal result of other cardiovascular function study ? Prothrombin Time w/INR Today E78.2 - Mixed hyperlipidemia, I10 - Essential (primary) hypertension, I25.10 - Atherosclerotic heart disease of [place] coronary artery without angina pectoris, R94.39 - Abnormal result of other cardiovascular function study ? CBC W/Diff, Automated Today E78.2 - Mixed hyperlipidemia, I10 - Essential (primary) hypertension, I25.10 - Atherosclerotic heart disease of [place] coronary artery without angina pectoris, R94.39 - Abnormal result of other cardiovascular function study ? Plan Details Additional Comments: Thank you for allowing us to participate in the patients plan of care, if you have any questions please do not hesitate to call. This note was generated using a voice recognition system and there may be incorrect words, spelling or punctuation that were not noted when reviewing the office note prior to saving. Portions of this documentation were copied and pasted from previous office visit notes to provide a cohesive continuity of the history. The note has been reviewed, edited, and updated, as necessary. Follow Up: ? ? Keep as is (PFM) COVID (Procedure Consent) Procedure Criteria Procedure Criteria: Yes Elective The surgeon/proceduralist and patient have discussed in detail the risk of exposure to and/or potential harm posed by the COVID-19 virus with having a surgery/procedure at this time versus the risk of? delaying the surgery/procedure. It is not possible to know either the risk of delaying the surgery or procedure or chance of getting an infection with perfect accuracy, but a joint decision was made between the patient and the surgeon/proceduralist ?to proceed at this time with the scheduled surgery/procedure as indicated on the consent form. Coding Level of Care Code Off vis,est,level 3 Diagnoses Abnormal stress test? R94.39 Atherosclerosis of [place] coronary artery of [place] heart without angina pectoris? I25.10 Mixed hyperlipidemia? E78.2 Essential hypertension? I10 Coding Level of Care Code Off vis,est,level 3 Diagnoses Abnormal stress test? R94.39 Atherosclerosis of [place] coronary artery of [place] heart without angina pectoris? I25.10 Mixed hyperlipidemia? E78.2 Essential hypertension? I10 06/24/22 1639 <Electronically signed by Artem Garza NP, NP-C> Date Artem Garza NP, NP-C Cosigner Signature: Date (if applicable) CC:? [facility] ~ Assessment & Plan Addt'l Comments Addendum: 07/16/2022 I have examined the patient and the H&P has been reviewed. There are no clinical changes since date of exam. This note was generated using a voice recognition system and there may be incorrect words, spelling or punctuation that were not noted when reviewing the office note prior to saving.
--- NOTE | 2022-07-16 10:12 | CL.D_ITS ---
Patient Name: XUAN ARRIETA Study Date: 07/16/2022 Performing: Bob Kothari MD Ht: 72 inches 182.88 cm : 1945 Wt: 225 lbs 102.06 kg Age: 76 Gender: male BSA: 2.24 PROCEDURE(S) PERFORMED DC03-(43061)LHC/COR/LV/CABG CLINICAL PROFILE AND INDICATIONS Indications: Suspected CAD Heart Failure: None Stress/Imaging Date: 06/18/2022Stress Test with SPECT MPI: Positive Intermediate Risk Angina Classification Anginal Classification w/in 2 Weeks: Anginal Equivalent Dyspnea CAD Presentations: Other: dyspnea on exertion CONCLUSIONS Normal Left Ventricular End Diastolic Pressure LV with regional wall motion abnormalities with overall preserved LVEF LVEF: by LV gram 55 % Kaw Multivessel CAD MANZANARES to LAD: patent SVG to OM1: patent Left to Right collateral flow Right to Right collateral flow RECOMMENDATIONS Risk factor modification Medical therapy DESCRIPTION OF PROCEDURE The patient arrived to the procedure lab. The risks and benefits of the procedure as well as a full description of our services here and current unavailability of surgical backup were fully explained to the patient and/or their significant other prior to the catheterization. The Timeout was completed, verifying the correct patient and procedure. The patient's procedural site was prepped and draped in the usual fashion. Local anesthetic was given subcutaneously to right groin region with Lidocaine 2%. Using a modified Seldinger technique, arterial access was obtained via the right femoral artery, a 4Fr sheath was inserted Left Coronary Artery selective angiography was performed in multiple views using a 4 Fr. JL5 catheter. Right Coronary Artery selective angiography was then performed in multiple views using a 4 Fr. 3DRC catheter. Saphenous Vein graft to the OM 1 selective angiography was performed in multiple views using a 4 Fr. 3DRC catheter. Left internal mammary artery graft to the LAD selective angiography was performed in multiple views using a 4 Fr. 3DRC catheter. Left Ventriculography was performed in TABOR projection using a 4 Fr. Pigtail catheter. LV to AO pullback pressures were then recorded.The arterial sheath was pulled and manual compression applied until hemostasis is achieved. CORONARY ANGIOGRAPHY DOMINANCE: Co- Dominant LEFT HEART ASSESSMENT Left Ventricular Ejection Fraction: by LV Gram 55 % Inferior Basal Hypokinesis. Inferior Mid Hypokinesis Normal Left Ventricular End Diastolic Pressure LVEDP: 11 mmHg LEFT MAIN: Moderate calcification, distal: 85 % Stenosis LEFT ANTERIOR DESCENDING ARTERY: MID LAD: is occluded, to distal vessel: filling from the MANZANARES grarft with no angiographically significant appearing disease distal to the graft attachment SEPTAL: ostial / proximal: subtotally occluded CIRCUMFLEX ARTERY: mid to distal LCX and OM2 filling from antegrade flow and from retrograde flow from the SVG to the OM1 PROX CIRC: 95 % Stenosis OM 1: Proximal - fills partially from antegrade flow but predominantly from SVG graft flow with no angioraphically significant appearing disease distal to the graft attachment RAMUS: Mild luminal irregularities RIGHT CORONARY ARTERY: MID RCA: is occluded DISTAL RCA: fills faintly from right to right bridging collaterals and partially from left to right collateral flow GRAFTS: MANZANARES graft to the Mid LAD is patent Saphenous Vein graft to the 1st OM is patent COLLATERAL FLOW: Collateral flow from Left to Right Collateral flow from Right to Right AORTIC ROOT: Angiographically normal COMPLICATIONS No Complications PROCEDURE MEDICATIONS Versed 1 mg IV Fentanyl 50 mcg IV Oxygen: 2 L/min via nasal cannula IV Bolus: .9 NaCl 175 ml total 07/16/2022 08:53:21 SUMMARY OF HEMODYNAMIC DATA Time AIR REST ECG 07:34:28 AO 122/76 (93) SA 09:11:23 LV 112/-3, 14 09:26:28 LV 112/-2, 11 09:26:37 LV 113/-3, 21 09:27:25 LV 110/-2, 10 09:27:34 LVp 110/-1, 10 09:27:38 AOp 106/0 (42) 09:27:45 Signed By Bob Kothari MD On 07/16/2022 10:11:33 Bob Kothari MD
== END 2022-07-16 14:00 | disposition home or self-care (01) ==
PROVIDERS: PCP Nurse Practitioner; Referring Provider Internal Medicine Cardiovascular Disease; Visit Provider Internal Medicine Cardiovascular Disease
DX: I25.10 Atherosclerotic heart disease of native coronary artery without angina pectoris (principal); E78.2 Mixed hyperlipidemia; R94.39 Abnormal result of other cardiovascular function study; I10 Essential (primary) hypertension; Z79.02 Long term (current) use of antithrombotics/antiplatelets; Z79.1 Long term (current) use of non-steroidal anti-inflammatories (NSAID); Z79.82 Long term (current) use of aspirin; Z79.899 Other long term (current) drug therapy; Z87.891 Personal history of nicotine dependence; Z95.1 Presence of aortocoronary bypass graft
CPT/HCPCS: 93459; 99152; 99153; C1769; J7040; Q9967; C1894

== ENCOUNTER → 2022-09-09 | Outpatient (CLI) | payer MEDICARE, OTHER, SELFPAY ==
--- NOTE | 2022-09-09 15:28 | CT_ITS ---
EXAM: CT CHEST, LUNG CANCER SCREENING WITHOUT INTRAVENOUS CONTRAST CLINICAL INDICATION: None provided. h/o Tobacco Dependency TECHNIQUE: Helically acquired images were obtained of the chest without intravenous contrast using low dose (LDCT) lung cancer screening protocol. This CT exam was performed using one or more of the following dose reduction techniques: automated exposure control, adjustment of the mA and/or kV according to patient size, and/or use of iterative reconstruction technique. COMPARISON: No relevant prior studies available. FINDINGS: LUNGS AND PLEURAL SPACES: There is a calcified nodule within the right middle lobe and measures 3 mm. There is minimal scarring in the lung bases. There are pleural calcifications in the left base. No pneumothorax. HEART: Unremarkable. Heart size is normal. No pericardial effusion. No significant coronary artery calcifications. MEDIASTINUM: Unremarkable. No mediastinal or hilar adenopathy. Esophagus is unremarkable. No hiatal hernia. THYROID: Unremarkable. No thyroid lesions. BONES/JOINTS: Unremarkable. No suspicious lytic or blastic abnormality. VASCULATURE: Unremarkable. Thoracic aorta is non-dilated. LYMPH NODES: Unremarkable. No enlarged lymph nodes. CT/Low Dose CT Lung Screening IMPRESSION: 1. Calcified nodule right middle lobe may represent prior granulomatous disease. No other abnormalities are seen. Lung-RADS score: 1 - Recommend continued annual screening with low-dose CT (LDCT) in 12 months. 2. No acute pulmonary abnormality. 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 Electronically Signed: Khanh Carmichael MD at 0:09 EDT ,
== END | disposition home or self-care (01) ==
LOC: CT 15:27
PROVIDERS: PCP Nurse Practitioner; Referring Provider Internal Medicine Critical Care Medicine; Visit Provider Internal Medicine Critical Care Medicine
DX: F17.211 Nicotine dependence, cigarettes, in remission (principal)
CPT/HCPCS: 71271

== ENCOUNTER 2022-10-22 14:05 | Day surgery (SDC) | payer MEDICARE, OTHER, SELFPAY ==
--- NOTE | 2022-10-22 | ESO_PTH ---
PATIENT: XUAN ARRIETA Jr. LOC: EN U#:[id number] AGE/SX: 76/M ROOM: RE10/22/[address]: Dr. Gerardo Cueto DO : 1945 BED: DIS: 10/22/2022 SPEC #: [id number] RECD: 10/22/22 17:05 STATUS: KATHIE REKen #: [id number] MELLY: 10/22/22 00:[address]: Gerardo Cueto DEPT: SURGICAL PATHOLOGY RECD BY: Jose Raul Stoner ENTERED: 10/23/22 09:15 SP TYPE: BIANCA MIRANDA DR: MARY CLOUD Tissues: Esophagus, NOS Procedures: Special Stain Group II Surgery Specimen Level IV Alcian Blue/PAS (control) HEADER OPERATION: EGD with biopsy ([facility]) PRE-OP DIAGNOSIS: GERD TISSUE SUBMITTED: Distal esophagus biopsy MICROSCOPIC DIAGNOSIS Distal esophagus, biopsy: Gastroesophageal junction biopsy with chronic inflammation. Focal changes of reflux. No evidence of goblet cell metaplasia. See comment. AM:jayesh 10/24/2022 COMMENT Alcian blue/PAS stain with matched control supports the above diagnosis. MICROSCOPIC DESCRIPTION Slides are reviewed. GROSS DESCRIPTION Received in fixative is one container labeled with the patient's name and designated distal esophagus. The specimen consists of multiple irregular fragments of light howard soft tissue that in aggregate measure 1.0 x 0.3 x 0.1 cm. The specimen is totally submitted in one cassette. / AM:jayesh 10/23/2022 TC:3 CPT: 07342, 62730
[2022-10-22 14:45] VITALS: BP 142/71; PULSE 57; RESP 18; TEMP 36.2; O2SAT 98; BMI 29.2
[2022-10-22] MEDS: Lactated Ringers 1,000 ML 15 ML IV (14:52)
--- NOTE | 2022-10-22 15:59 | PCM.HP.BLA ---
History and Physical Date of Admission: 10/22/22 76 M who presents to the office today in order to schedule an EGD.? [facility] and the [facility] is telling him he is due for EGD.? 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 He reports his acid reflux is controlled with pantoprazole 40 mg daily and famotidine.? The only time he experiences reflux is if he eats a snack at bedtime.? No abdominal pain, nausea, vomiting, dysphagia, diarrhea, constipation, melena, hematochezia.? He has a history of colon tubular adenoma in 2014.? He reports colonoscopy was repeated in 2019 and that there were no abnormalities.? He was told to get a repeat colonoscopy in 2024.? He recalls his last EGD was in 2019 at the [facility]. ROS Const Constitutional: No fatigue ENT ENT: No difficulty swallowing Gastro GI: No abdominal pain, belching, bloating, change in bowel habits, change in stool character, coffee ground emesis, constipation, cramping, diarrhea, heartburn, difficulty swallowing, feeling full early, excessive flatus, incontinent of stools, Vomiting blood/hematemesis, Blood in stool, loose stools, Black,tarry stools, nausea/dyspepsia, pain with swallowing, vomiting or other Musc Musculoskeletal: No joint pain Skin Skin: No yellowing of the eye or itchy eyes Psych Psychiatric: No anxiety and No depression Endo Endocrine: No fatigue Aller/Imm Allergy/Immunologic: No itchy eyes [place]/Lymp Hematologic/Lymphatic: No easy bleeding or easy bruising Exam Const General: cooperative and comfortable Orientation: alert, awake and oriented x3 Quality Reporting Tobacco Screening ([facility] 138) Smoking Status: Former smoker Assessment and Plan Assessment and Plan (1) GERD (gastroesophageal reflux disease): ?Status:?Chronic ?Plan: [id number] male with GERD managed with PPI and H2 emily.? Questionable history of De La Garza's esophagus.? He will be scheduled for EGD with office follow-up 2 weeks later. I have examined the patient and the H&P has been reviewed. There are no clinical changes since date of exam.
[2022-10-22 16:21] VITALS: BP 106/76; PULSE 71; RESP 16; TEMP 36.4; O2SAT 93
--- NOTE | 2022-10-22 16:23 | OP.EGD_ITS ---
Patient Name: Karlos Salcedo Procedure Date: 10/22/2022 3:56 PM Date of : 1945 Age: 76 Procedure: Upper GI endoscopy Indications: Suspected De La Garza's esophagus Providers: Gerardo Cueto DO Medicines: Monitored Anesthesia Care Patient Profile: This is a 76 year old male. Refer to note in patient chart for documentation of history and physical. Patient has symptoms of chronic heartburn. Complications: No immediate complications. Procedure: Pre-Anesthesia Assessment: - Prior to the procedure, a History and Physical was performed, and patient medications and allergies were reviewed. The patient is competent. The risks and benefits of the procedure and the sedation options and risks were discussed with the patient. All questions were answered and informed consent was obtained. Patient identification and proposed procedure were verified by the physician. Mental Status Examination: normal. Prophylactic Antibiotics: The patient does not require prophylactic antibiotics. Prior Anticoagulants: The patient has taken no previous anticoagulant or antiplatelet agents. ASA Grade Assessment: II - A patient with mild systemic disease. After reviewing the risks and benefits, the patient was deemed in satisfactory condition to undergo the procedure. The anesthesia plan was to use monitored anesthesia care (MAC). Immediately prior to administration of medications, the patient was re-assessed for adequacy to receive sedatives. The heart rate, respiratory rate, oxygen saturations, blood pressure, adequacy of pulmonary ventilation, and response to care were monitored throughout the procedure. The physical status of the patient was re-assessed after the procedure. After obtaining informed consent, the endoscope was passed under direct vision. Throughout the procedure, the patient's blood pressure, pulse, and oxygen saturations were monitored continuously. The gastroscope was introduced through the mouth, and advanced to the second part of duodenum. The upper GI endoscopy was accomplished without difficulty. The patient tolerated the procedure well. Scope In: 4:11:22 PM Scope Out: 4:14:56 PM Total Procedure Duration Time 0 hours 3 minutes 34 seconds Findings: The esophagus and gastroesophageal junction were examined with white light and narrow band imaging (NBI) from a forward view and retroflexed position. There were esophageal mucosal changes suspicious for short-segment De La Garza's esophagus. These changes involved the mucosa at the upper extent of the gastric folds (43 cm from the incisors) extending to the Z-line (39 cm from the incisors). [place]-colored mucosa was present. The maximum longitudinal extent of these esophageal mucosal changes was 3 cm in length. Mucosa was biopsied with a cold forceps for histology in 4 quadrants at intervals of 1 cm in the lower third of the esophagus. One specimen bottle was sent to pathology. Verification of patient identification for the specimen was done. Estimated blood loss was minimal. A medium-sized hiatal hernia was present. No other significant abnormalities were identified in a careful examination of the stomach. The duodenal bulb was normal. 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 Biopsied. - Medium-sized hiatal hernia. - Normal duodenal bulb. Recommendation: - Discharge patient to home. - Resume previous diet. - Continue present medications. - Await pathology results. - Repeat upper endoscopy in 1 year for surveillance. Procedure Code(s): --- Professional --- 70528, Esophagogastroduodenoscopy, flexible, transoral; with biopsy, single or multiple CPT copyright 2017 [employer]. All rights reserved. The codes documented in this report are preliminary and upon floorworker distributor review may be revised to meet current compliance requirements. Gerardo Cueto DO 10/22/2022 4:23:03 PM This report has been signed electronically. Number of Addenda: 0 Note Initiated On: 10/22/2022 3:56 PM
--- NOTE | 2022-10-22 16:23 | OP.CCLET_ITS ---
10/22/2022 Javon Harris Re : Upper GI endoscopy procedure for Karlos Salcedo Dear This procedure was performed on Saturday, October 22, 2022. My impressions and recommendations are as follows: Impressions : - Esophageal mucosal changes suspicious for short-segment De La Garza's esophagus. Biopsied. - Medium-sized hiatal hernia. - Normal duodenal bulb. Recommendations : - Discharge patient to home. - Resume previous diet. - Continue present medications. - Await pathology results. - Repeat upper endoscopy in 1 year for surveillance. My findings are described in the full procedure note, which is enclosed. If I can be of further assistance, please feel free to contact me at . Sincerely, Gerardo Cueto, 10/22/2022 4:23:03 PM This report has been signed electronically.
[2022-10-22 16:25] VITALS: BP 102/61; PULSE 69; RESP 16; O2SAT 65
[2022-10-22 16:30] VITALS: BP 142/71; BP 90/55; PULSE 68; RESP 16; O2SAT 94
[2022-10-22 16:35] VITALS: BP 142/71; BP 94/69; PULSE 65; RESP 16; TEMP 36.4; O2SAT 93
[2022-10-22 17:00] VITALS: BP 142/71
== END 2022-10-22 17:02 | disposition home or self-care (01) ==
LOC: EN 14:09 → AC 14:11
PROVIDERS: PCP Nurse Practitioner; Referring Provider Nurse Practitioner; Visit Provider Internal Medicine Gastroenterology
PROC: 0DJ08ZZ Inspection of Upper Intestinal Tract, Via Natural or Artificial Opening Endoscopic (ICD-10-PCS; CPT 43235; principal; 2022-10-22 15:25)
DX: K21.00 Gastro-esophageal reflux disease with esophagitis, without bleeding (principal); J44.9 Chronic obstructive pulmonary disease, unspecified; K44.9 Diaphragmatic hernia without obstruction or gangrene; Z87.891 Personal history of nicotine dependence; Z79.899 Other long term (current) drug therapy; Z79.82 Long term (current) use of aspirin; Z79.02 Long term (current) use of antithrombotics/antiplatelets; I10 Essential (primary) hypertension; I25.10 Atherosclerotic heart disease of native coronary artery without angina pectoris; E78.00 Pure hypercholesterolemia, unspecified
CPT/HCPCS: 43239; 88305; 88313; J7120; J2405

== ENCOUNTER → 2023-09-12 | Outpatient (CLI) | payer MEDICARE, OTHER, SELFPAY ==
--- NOTE | 2023-09-12 13:14 | CT_ITS ---
STUDY: LOW DOSE CT LUNG CANCER SCREENING REASON FOR EXAM: Male, 77 years old. One half pack per day smoker x40 years, still smokes occasional cigar RADIATION DOSAGE (If Supplied By Facility): CTDIvol = ( 2.39 ) mGy, DLP = ( 85.48 ) mGycm TECHNIQUE: No contrast was administered. Low dose technique was utilized (average mAS-38 and kVp 120). 1.25 mm axial source images with a slice interval of 1.25-mm were reconstructed in lung windows. 2.5 mm axial source images with a slice interval of 2.5-mm were reconstructed in lung windows. 5.0 mm axial source images with a slice interval of 5.0-mm were reconstructed in soft tissue windows. COMPARISON: 09/09/2022 FINDINGS: Lung windows show underlying emphysema with chronic interstitial changes in both lung byrd. There is no organized infiltrate effusion or suspicious noncalcified mass or nodule. There is nonspecific pleural thickening and fibrotic scarring in the left lung base. Soft tissue windows show normal-appearing thyroid. There has been remote CABG. No suspicious adenopathy. Bony structures show degenerative change CT/Low Dose CT Lung Screening IMPRESSION: Lung-RADS category 2 - Continue annual screening with LDCT in 12 months. IMPORTANT NOTES FOR USE: ACR Lung-RADS Version 1.1 Assessment Categories Release Date: 2018 Category: Coded 0-4 bases on nodule(s) with highest degree of suspicion. Negative screen is defined as categories 1 and 2; a positive screen is defined as categories 3 and 4. Category 3 and 4A nodules that are unchanged on interval CT should be coded as category 2, and individuals returned to screening in 12 months. Category 4X: Category 3 or 4 nodules with additional imaging findings that increase the suspicion of lung cancer, such as spiculation, GGN that doubles in size in 1 year, enlarged lymph notes, etc. Category Modifiers: S (significant finding unrelated to lung cancer) Electronically Signed: Kaleb Eden MD at 12:26 EDT ,
== END | disposition home or self-care (01) ==
LOC: CT 13:13
PROVIDERS: PCP Nurse Practitioner; Referring Provider Internal Medicine Critical Care Medicine; Visit Provider Internal Medicine Critical Care Medicine
DX: F17.211 Nicotine dependence, cigarettes, in remission (principal)
CPT/HCPCS: 71271

== ENCOUNTER 2024-03-11 07:27 | Day surgery (SDC) | payer MEDICARE, OTHER, SELFPAY ==
[2024-03-11] VITALS (10 sets, daily range): BP systolic 67–113; BP diastolic 54–70; PULSE 56–63; RESP 16–20; TEMP 36.2–36.7; O2SAT 92–95; BMI 29.5
[2024-03-11 08:32] LABS: Bedside Glucose 131 mg/dL (74-106)
[2024-03-11] MEDS: 0.9% Normal Saline (500mL Bag) 500 ML 999 ML IV (09:45)
== END 2024-03-11 10:31 | disposition home or self-care (01) ==
LOC: EN 07:30 → AC 07:31
PROVIDERS: PCP Nurse Practitioner; Referring Provider Nurse Practitioner; Visit Provider Internal Medicine Gastroenterology
PROC: 0DJ08ZZ Inspection of Upper Intestinal Tract, Via Natural or Artificial Opening Endoscopic (ICD-10-PCS; CPT 43235; principal; 2024-03-11 08:25)
DX: K22.70 Barrett's esophagus without dysplasia (principal); J44.9 Chronic obstructive pulmonary disease, unspecified; K44.9 Diaphragmatic hernia without obstruction or gangrene; K21.00 Gastro-esophageal reflux disease with esophagitis, without bleeding; Z79.899 Other long term (current) drug therapy; Z79.82 Long term (current) use of aspirin; Z79.02 Long term (current) use of antithrombotics/antiplatelets; I10 Essential (primary) hypertension; E78.2 Mixed hyperlipidemia; F17.211 Nicotine dependence, cigarettes, in remission; Z95.1 Presence of aortocoronary bypass graft
CPT/HCPCS: 43239; 82962; 88305; 88312; 88341; 88342; J7040; A4216; J2405

== ENCOUNTER → 2024-09-23 | Outpatient (CLI) | payer MEDICARE, OTHER, SELFPAY ==
--- NOTE | 2024-09-23 13:42 | CT_ITS ---
PROCEDURE: LOW DOSE CT LUNG SCREENING 09/23/2024 REASON FOR EXAM: SMOKER QUIT 2014 TECHNIQUE: Low Dose CT Lung screening without contrast. Coronal and Sagittal reconstruction series were provided. One or more dose reduction techniques were used (e.g., Automated exposure control, adjustment of the mA and/or kV according to patient size, use of iterative reconstruction technique). REFERENCE LINK: [employer] Lung-RADS RADIATION DOSE SUMMARY: CTDlvol: 3.2 mGy DLP: 108 mGycm COMPARISON: None FINDINGS: Lymph Nodes:No significant lymphadenopathy. Heart and Vasculature:Sequelae of CABG. Severe coronary calcifications. Heart is not significantly enlarged. Moderate aortic atherosclerosis. Lungs and Airways: Central airways are predominantly clear. Linear scarring or atelectasis at the lung bases. There is a triangular nodule in the right upper lobe measuring 5 mm (series 2 image 146. There are a few additional solid nodules measuring up to 3 mm, for example in the right middle lobe (images 164 and 159). Pleura:Calcified pleural plaques at the left posterior pleura and along the right diaphragm. Upper Abdomen:Unremarkable Bones:Degenerative changes of the thoracic spine. CT/Low Dose CT Lung Screening IMPRESSION: Lung-RADS Category: 2 BENIGN (BASED ON IMAGING FEATURES OR INDOLENT BEHAVIOR). RECOMMEND 12-MONTH SCREENING LDCT. Other Significant Findings: Calcified pleural plaques suggestive of prior asbes tos exposure. Sequela of CABG with severe coronary calcifications. Reading Location: [id number]
== END | disposition home or self-care (01) ==
LOC: CT 13:37
PROVIDERS: PCP Nurse Practitioner; Referring Provider Nurse Practitioner Acute Care; Visit Provider Nurse Practitioner Acute Care
DX: F17.211 Nicotine dependence, cigarettes, in remission (principal)
CPT/HCPCS: 71271